=== PATIENT | female | born 1955 | race Asian ===

== ENCOUNTER → 2017-11-11 10:07 | Outpatient (CLI) | payer OTHER, SELFPAY ==
[2017-11-11 11:22] LABS: BUN Creatinine Ratio 31.7 (6-22); Blood Urea Nitrogen 19 mg/dL (7-17); Calcium 9.6 mg/dL (8.4-10.2); Carbon Dioxide 31 mmol/L (22-32); Chloride 98 mmol/L (98-107); Cholesterol 189 mg/dL (140-199); Estimated Glomerular Filt Rate > 60.0 mL/min (>60); Glucose 93 mg/dL (80-110); HDL Cholesterol 74 mg/dL (40-60); HEMOLYSIS < 15 (0-50); LDL Cholesterol Calculated 95 mg/dL (<100); Potassium 4.9 mmol/L (3.4-5.1); Sodium 140 mmol/L (137-145); Triglycerides 98 mg/dL (35-150)
[2017-11-11 11:29] LABS: Hemoglobin A1C% w Est Avg Glu 5.5 % (4.0-6.0)
== END ==
PROVIDERS: PCP Family Medicine; Visit Provider Family Medicine
DX: I10 Essential (primary) hypertension (principal); R73.03 Prediabetes
CPT/HCPCS: 36415; 80048; 80061; 83036

== ENCOUNTER → 2017-11-20 14:43 | Outpatient (CLI) | payer OTHER, SELFPAY | PROVIDERS: PCP Family Medicine; Visit Provider Family Medicine | DX: Z78.0 Asymptomatic menopausal state (principal) | CPT/HCPCS: 77080 ==

== ENCOUNTER → 2018-11-02 10:07 | Outpatient (CLI) | payer OTHER, SELFPAY ==
[2018-11-02 12:02] LABS: Creatinine Urine Random 56.8 mg/dL
[2018-11-02 12:07] LABS: BUN Creatinine Ratio 28.6 (6-22); Blood Urea Nitrogen 20 mg/dL (7-17); Calcium 9.4 mg/dL (8.4-10.2); Carbon Dioxide 31 mmol/L (22-32); Chloride 100 mmol/L (98-107); Estimated Glomerular Filt Rate > 60.0 mL/min (>60); Glucose 92 mg/dL (80-110); HEMOLYSIS < 15 (0-50); Potassium 3.9 mmol/L (3.4-5.1); Sodium 138 mmol/L (137-145)
[2018-11-02 12:10] LABS: Microalbumi Creatinin Ratio Ur 10.5 ug/mg CR (<30); Microalbumin Urine Random < 0.6 mg/dL (0-1.6)
== END ==
PROVIDERS: PCP Family Medicine; Visit Provider Family Medicine
DX: I10 Essential (primary) hypertension (principal)
CPT/HCPCS: 36415; 80048; 82043; 82570

== ENCOUNTER → 2018-11-29 08:53 | Outpatient (CLI) | payer OTHER, SELFPAY ==
--- NOTE | 2018-11-29 08:54 | DI.US.S_ITS ---
PROCEDURE: US CHEST COMPARISON: None. INDICATIONS: RIGHT INFERIOR/LATERAL SHOULDER LUMP FINDINGS: Sonographic evaluation was performed over the posterior margin of the inferior aspect of the left shoulder, chest wall, in the area of palpable and visible lump that the patient reports has been present for numerous years, without change room attendant time. It is visibly more evident, however, as a result of her losing weight. On palpation there is structure is soft and pliable, and has physical examination findings suggestive of lipoma. On sonographic evaluation this structure measures up to 6.1 x 5.2 cm parallel to the chest wall with a 2.4 cm thickness. It can be delineated within the body wall fat and is near-isoechoic to fat. Adjacent musculature is seen to be separate and different in appearance. No internal blood flow is seen that would indicate inflammatory change. 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 This is separate from the axilla, I has imaging characteristics of a lipoma, and could be further assessed for additional tissue detail if clinically desired utilizing contrast enhanced MR scanning. The structure may be a candidate for elective surgical excision and if that is the case surgical consultation rather than an ultrasound-guided biopsy is recommended. Dictated by: Mendel Mariscal M.D. on 11/29/2018 at 9:47 Approved by: Mendel Mariscal M.D. on 11/29/2018 at 9:51
== END ==
PROVIDERS: PCP Family Medicine; Visit Provider Family Medicine
DX: R22.31 Localized swelling, mass and lump, right upper limb (principal)
CPT/HCPCS: 76604

== ENCOUNTER → 2019-01-17 11:57 | Outpatient (CLI) | payer OTHER, SELFPAY ==
--- NOTE | 2019-01-17 11:58 | DI.MG.S_ITS ---
BILATERAL DIGITAL SCREENING MAMMOGRAM 3D/2D WITH CAD: 01/17/2019 CLINICAL: Routine screening. Family history of breast cancer. Comparison is made to exams dated: 09/15/2017 mammogram, 08/05/2016 mammogram, and 06/08/2015 mammogram - [facility]. The tissue of both breasts is heterogeneously dense. This may lower the sensitivity of mammography. Current study was also evaluated with a Computer Aided Detection (CAD) system. There is a new 6 mm round asymmetry with an obscured margin in the right breast anterior depth central to the nipple seen on the craniocaudal view only. No other significant masses, calcifications, or other findings are seen in either breast. IMPRESSION: INCOMPLETE: NEEDS ADDITIONAL IMAGING EVALUATION The new 6 mm round asymmetry in the right breast is indeterminate. A diagnostic mammogram and ultrasound is recommended. This exam was interpreted at Station ID: [id number]. NOTE: For mammograms, a report in lay terms will be sent to the patient. Approximately 15% of breast malignancies will not be visualized mammographically. In the management of a palpable breast mass, a negative mammogram must not discourage biopsy of a clinically suspicious lesion. Electronically Signed By: Carmen reeves/fabio:01/17/2019 19:06:18 letter sent: Additional Imaging Needed ACR BI-RADS Category 0: Incomplete 3340F
== END ==
PROVIDERS: PCP Family Medicine; Visit Provider Family Medicine
DX: Z12.39 Encounter for other screening for malignant neoplasm of breast (principal); Z80.3 Family history of malignant neoplasm of breast
CPT/HCPCS: 77063; 77067

== ENCOUNTER → 2019-02-11 10:09 | Outpatient (CLI) | payer OTHER, SELFPAY ==
--- NOTE | 2019-02-11 10:12 | DI.US.S_ITS ---
LIMITED ULTRASOUND OF RIGHT BREAST: 02/11/2019 CLINICAL: Patient returns today to evaluate a focal asymmetry in the right breast. Comparison is made to exams dated: 02/11/2019 mammogram, 01/17/2019 mammogram - [facility], 09/15/2017 mammogram, 08/05/2016 mammogram, and 06/08/2015 mammogram - [facility]. Color flow and real-time ultrasound of the right breast 6 o'clock and 12 o'clock regions were performed. Chapman scale images of the real-time examination were reviewed. No significant abnormalities were seen sonographically in the right breast. IMPRESSION: NEGATIVE There is no sonographic correlate to the patient's screening abnormality which resolved with additional mammographic views. No sonographic evidence of malignancy. Return to annual mammogram screening schedule is recommended. Findings and recommendations were conveyed to the patient at time of exam. This exam was interpreted at Station ID: [id number]. Electronically Signed By: Carmen reeves/:02/11/2019 11:40:40 letter sent: Normal Exam Ultrasound BI-RADS: 1 Negative
--- NOTE | 2019-02-11 10:12 | DI.MG.S_ITS ---
UNILATERAL RIGHT DIGITAL DIAGNOSTIC MAMMOGRAM 3D/2D WITH ADDITIONAL VIEWS: 02/11/2019 CLINICAL: Additional evaluation requested from prior study. Comparison is made to exams dated: 01/17/2019 mammogram - [facility], 09/15/2017 mammogram, and 08/05/2016 mammogram - [facility]. The tissue of right breast is heterogeneously dense. This may lower the sensitivity of mammography. The 6 mm round asymmetry with an obscured margin in the right breast anterior depth central to the nipple seen on the craniocaudal view only is no longer seen with spot compression. This is not seen in additional views. No other significant masses or calcifications are seen in the breast. IMPRESSION: INCOMPLETE: NEEDS ADDITIONAL IMAGING EVALUATION An ultrasound is recommended to confirm resolution of round asymmetry in the right breast anterior depth central to the nipple seen on the craniocaudal view only. This was performed immediately following this exam. This exam was interpreted at Station ID: [id number]. NOTE: For mammograms, a report in lay terms will be sent to the patient. Approximately 15% of breast malignancies will not be visualized mammographically. In the management of a palpable breast mass, a negative mammogram must not discourage biopsy of a clinically suspicious lesion. Electronically Signed By: Carmen reeves/:02/11/2019 11:38:41 ACR BI-RADS Category 0: Incomplete 3340F
== END ==
PROVIDERS: PCP Family Medicine; Visit Provider Family Medicine
DX: R92.8 Other abnormal and inconclusive findings on diagnostic imaging of breast (principal); N64.89 Other specified disorders of breast
CPT/HCPCS: 76642; 77065; G0279

== ENCOUNTER 2019-03-07 00:15 | Emergency (ER) | payer OTHER, SELFPAY ==
[2019-03-07 00:24] VITALS: BP 163/84; PULSE 88; RESP 14; TEMP 36.6; O2SAT 100; BMI 21.8
[2019-03-07] MEDS: ONDANSETRON 4 MG ODT SL (00:47)
--- NOTE | 2019-03-07 01:04 | ED_ITS ---
HPI - Dental/Oral General Chief complaint: Dental/Oral Stated complaint: upper left side of face pain/tooth/gum pain Time Seen by Provider: 03/07/19 00:21 Source: family Mode of arrival: Ambulatory History of Present Illness HPI Narrative: Patient is a 63-year-old female who presents with left upper dental pain. It has been ongoing for couple of days she has an appointment with a dentist tomorrow at around 9:00 a.m.. However her pain is got significantly worse over the past few hours. She has been taking Tylenol and ibuprofen as dir ected but it has not helped. She has no facial swelling she denies any fever. She does have a crown right where the pain is. MD Complaint: tooth pain Teeth map: 1. No dental abscess. No significant swelling Related Data Home Medications Medication Instructions Recorded Confirmed metoprolol tartrate 25 mg tablet 25 mg PO BID tab 11/10/18 11/10/18 Previous Rx's Medication Instructions Recorded loratadine 10 mg tablet 10 mg PO DAILY #90 tab 11/10/18 potassium chloride 10 mEq 10 meq PO DAILY #90 cap 11/10/18 capsule,extended release amoxicillin 500 mg PO BID #14 cap 03/07/19 Allergies Allergy/AdvReac Type Severity Reaction Status Date / Time Sulfa (Sulfonamide Allergy Verified 11/10/18 09:27 Antibiotics) Review of Systems Review of Systems Narrative: GENERAL: Denies chills,fever HEENT: See HPI Denies throat pain RESPIRATORY: Denies dyspnea, cough, wheezing CARDIOVASCULAR: Denies chest pain, palpitations GASTROINTESTINAL: Denies nausea, vomiting MUSCULOSKELETAL: Denies extremity pain, injury SKIN: No rash, no laceration, no pruritus NEUROLOGIC: Denies weakness, dizziness, headache, numbness 8 point review of systems is negative except for those stated above and HPI Patient History Medical/Surgical History Medical History Atrial fibrillation (Chronic ~2015) Cardiac arrhythmia (Chronic ~2013) Cervical cancer (Chronic ~1991) Chicken pox (Resolved) Colitis (Chronic ~2014) GERD (gastroesophageal reflux disease) (Resolved ~2008) Hypertension (Chronic ~2000) Mumps (Resolved) Seasonal allergies (Chronic) Shoulder pain (Chronic ~2015) Sleep apnea (Chronic ~2016) Vertigo (Chronic ~2010) Surgical History History of hysterectomy (Resolved ~04/1992) Family History (Updated 11/11/17 @ 06:56 by Fabiola Sánchez) Father Cancer Mother Cancer Hypertension Sister Cancer Sister Hypertension Social History marital status: household members: spouse pets and animals: Yes education level: college nuria/anabaptism: sikhism other: travel,ride motorcycle,hiking,snorkeling seatbelt use: always helmet use: Yes water heater temp set < 120 deg: Yes working smoke detector in home: Yes fire extinguisher in home: Yes carbon monox detector in home: Yes firearms in home: Yes do you feel safe at home: Yes Smoking Status: Never smoker alcohol intake: never during the past year weight has: decreased > 10 lbs well-balanced diet: daily or most days daily servings fruits/ve or more times/day caffeine: Yes eating out: rarely or never Type(s) of exercise: walking frequency: 3-4 times per week duration: 45-60 minutes/day Family/Social History Family History Father Cancer Mother Cancer Hypertension Sister Cancer Sister Hypertension Social History marital status: household members: spouse pets and animals: Yes education level: college nuria/anabaptism: sikhism other: travel,ride motorcycle,hiking,snorkeling seatbelt use: always helmet use: Yes water heater temp set < 120 deg: Yes working smoke detector in home: Yes fire extinguisher in home: Yes carbon monox detector in home: Yes firearms in home: Yes do you feel safe at home: Yes Smoking Status: Never smoker alcohol intake: never during the past year weight has: decreased > 10 lbs well-balanced diet: daily or most days daily servings fruits/ve or more times/day caffeine: Yes eating out: rarely or never Type(s) of exercise: walking frequency: 3-4 times per week duration: 45-60 minutes/day alcohol intake frequency: 0-2 drinks per day Substance Use Type: does not use Exam Initial Vital Signs Initial Vital Signs: Vital Signs Temperature 97.8 F 03/07/19 00:24 Pulse Rate 88 03/07/19 00:24 Respiratory Rate 14 03/07/19 00:24 Blood Pressure 163/84 H 03/07/19 00:24 Pulse Oximetry 100 03/07/19 00:24 GENERAL: Well-appearing, well-nourished and in no acute distress. The crown noted at tooth 13. No dental abscess CARDIOVASCULAR: peripheral pulses in tact, cap refill <2 sec RESPIRATORY: No respiratory distress, speaks in full sentences without difficulty EXTREMITIES: Normal range of motion, no clubbing or edema. Neurovascularly intact NEUROLOGICAL: Cranial nerves II through XII grossly intact. Normal gait and speech. SKIN: Warm, dry, no petechiae, no rashes or lesions. Procedures Nerve Block Nerve Block 1: Time out performed: Yes Local Anesthetic: bupivacaine 0.5% and with epi Amount of anesthesia used (mL): 1 Side: left Intraoral Nerve Block: superior alveolar Procedure Successful: Yes Patient Tolerated Procedure: Well Complications: none Course Orders Ordered: Discontinued Medications Hydrocodone Bitart/Acetaminophen (Vicodin Prepack) 1 bottle MISC SEEINSTR ONE Stop: 03/07/19 01:09 Last Admin: 03/07/19 01:28 Dose: 1 bottle Documented by: GALINA Amoxicillin ( Trimox 250mg Prepack) 1 bottle MISC SEEINSTR ONE Stop: 03/07/19 01:09 Last Admin: 03/07/19 01:28 Dose: 1 bottle Documented by: GALINA Ondansetron HCl (Zofran Odt) 4 mg SL NOW ONE Stop: 03/07/19 00:45 Last Admin: 03/07/19 00:47 Dose: 4 mg Documented by: KEITH Vital Signs Vital signs: Vital Signs - 8 hr 03/07/19 00:24 03/07/19 01:19 Temperature 97.8 F Pulse Rate 88 61 Respiratory Rate 14 99 H Blood Pressure 163/84 H Blood Pressure [Left Arm] 149/72 H Pulse Oximetry 100 99 Discharge Plan Departure Patient Disposition: Home Clinical Impression: Toothache Instructions: DI for Dental Pain Activity Restrictions/Additional Instructions: *You have been diagnosed with dental pain *What to do: *Continue to take medications as directed Amoxicillin 500 mg twice a day for 7 days [place] 1 tablet every 6 hours if needed for pain *Follow up with your primary care provider in 2-3 days *Return to ER if you should have increasing facial swelling pain or any new, worsening or concerning symptoms Prescriptions: New amoxicillin 500 mg capsule 500 mg PO BID Qty: 14 RF: 0 No Action loratadine [Allergy Relief (loratadine)] 10 mg tablet 10 mg PO DAILY Qty: 90 RF: 2 potassium chloride 10 mEq capsule, extended release 10 meq PO DAILY Qty: 90 RF: 2 metoprolol tartrate 25 mg tablet 25 mg PO BID RF: 0 Referrals: Sandrita Alejandra MD [Primary Care Provider] -
[2019-03-07 01:19] VITALS: BP 149/72; PULSE 61; RESP 99; O2SAT 99
[2019-03-07] MEDS: AMOXICILLIN 250 MG PREPACK 1 BOTTLE MISC (01:28)
[2019-03-07] MEDS: HYDROCODONE/ACET 5/325 PREPACK 1 BOTTLE MISC (01:28)
== END 2019-03-07 01:34 | disposition home or self-care (01) ==
PROVIDERS: Emergency Provider Emergency Medicine; PCP Family Medicine
DX: K08.89 Other specified disorders of teeth and supporting structures (principal)
CPT/HCPCS: 64450; 99282; 99283

== ENCOUNTER → 2019-11-18 09:01 | Outpatient (CLI) | payer OTHER, SELFPAY ==
[2019-11-18 09:33] LABS: Add Manual Diff / Slide Review NO; Basophils Absolute Auto 100 /uL (0-100); Basophils Percent Auto 1.9 % (0-2); Eosinophils Absolute Auto 200 /uL (0-450); Eosinophils Percent Auto 4.2 % (2-4); Hematocrit 39.2 % (36-46); Hemoglobin 13.2 g/dL (12.0-16.0); Lymphocytes Absolute Auto 1700 /uL (1100-4500); Lymphocytes Percent Auto 32.4 % (25-40); Mean Corpuscular HGB Conc 33.6 % (30-36); Mean Corpuscular Hemoglobin 31.1 PG (26-34); Mean Corpuscular Volume 92.5 fL (80-100); Monocytes Absolute Auto 400 /uL (0-900); Neutrophils Absolute Auto 2700 /uL (1500-7000); Neutrophils Percent Auto 53.5 % (50-75); Platelet Count 254 X10^3/uL (150-400); Red Blood Cell Count 4.24 X10^6/uL (4.0-5.2); Red Cell Distribution Width 13.3 % (11.6-14.8); White Blood Cell Count 5.1 X10^3/uL (4.5-11.0)
[2019-11-18 09:49] LABS: Hemoglobin A1C% w Est Avg Glu 5.7 % (4.0-6.0)
[2019-11-18 09:55] LABS: Alanine Aminotransferase 19 IU/L (<35); Albumin 4.6 g/dL (3.5-5.0); Albumin Globulin Ratio 1.4 (1.0-2.8); Alkaline Phosphatase 49 U/L (38-126); Aspartate Aminotransferase 27 IU/L (14-36); BUN Creatinine Ratio 23.1 (6-22); Bilirubin Total 0.4 mg/dL (0.2-1.3); Blood Urea Nitrogen 15 mg/dL (7-17); Calcium 10.1 mg/dL (8.4-10.2); Carbon Dioxide 31 mmol/L (22-32); Chloride 101 mmol/L (98-107); Cholesterol 208 mg/dL (140-199); Estimated Glomerular Filt Rate > 60.0 mL/min (>60); Globulin 3.2 g/dL (1.7-4.1); Glucose 100 mg/dL (80-110); HDL Cholesterol 64 mg/dL (40-60); HEMOLYSIS < 15 (0-50); LDL Cholesterol Calculated 116 mg/dL (<100); Potassium 4.1 mmol/L (3.4-5.1); Sodium 138 mmol/L (137-145); Total Protein 7.8 g/dL (6.3-8.2); Triglycerides 141 mg/dL (35-150)
[2019-11-18 10:23] LABS: Thyroid Stimulating Hormone 1.59 uIU/mL (0.47-4.68)
== END ==
PROVIDERS: PCP Family Medicine; Referring Provider Family Medicine; Visit Provider Family Medicine
DX: G47.30 Sleep apnea, unspecified (principal); I10 Essential (primary) hypertension; I48.0 Paroxysmal atrial fibrillation
CPT/HCPCS: 36415; 80053; 80061; 83036; 84443; 85025

== ENCOUNTER → 2020-02-01 09:43 | Outpatient (CLI) | payer OTHER, SELFPAY ==
--- NOTE | 2020-02-15 09:44 | P.HOLT.S_ITS ---
[employer] Report Referral & Results Date Patient Seen: 02/01/20 Requesting provider: Sandrita Alejandra Indication: Dizziness Duration of monitoring (days): 3 Diary information: there were 13 patient triggered events and 8 patient diary entries over 3 days Patient triggered events were associated with (within 45 seconds) sinus rhythm, PACs, and SVT. Patient diary events were associated with the same 3 rhythms Data: minimum heart rate was 47 beats per minute at 07:52 on 02/02/2020 Maximum sinus heart rate was 114 beats per minute at 12:34 on 02/01/2020 Maximum overall heart rate was 140 beats per minute at 11:24 on 02/01/2020 during a 7 beat run of SVT/ atrial tachycardia Less than 1% of identified beats or either ventricular supraventricular ectopic in origin There were 12 runs of SVT/ atrial tachycardia with the fastest being the 7 beat run as above the longest being 17 beats at a rate of 108 beats per minute (which suggest strongly atrial tachycardia rather than true SVT ) Impression: 3 day monitor and storage bin tender showing minor supraventricular dysrhythmias as above. No more significant rhythm disturbances identified on this study
== END ==
PROVIDERS: Family Provider Family Medicine; PCP Family Medicine; Referring Provider Family Medicine; Visit Provider Family Medicine
DX: R42 Dizziness and giddiness (principal)
CPT/HCPCS: 0296T; 0298T

== ENCOUNTER → 2020-03-05 17:05 | Outpatient (CLI) | payer OTHER, SELFPAY ==
--- NOTE | 2020-03-05 | DI.MG.S_ITS ---
BILATERAL DIGITAL SCREENING MAMMOGRAM 3D/2D WITH CAD: 03/05/2020 CLINICAL: Routine screening. Family history of breast cancer. Comparison is made to exams dated: 02/11/2019 mammogram, 01/17/2019 mammogram - [facility], 09/15/2017 mammogram, and 08/05/2016 mammogram - [facility]. The tissue of both breasts is heterogeneously dense. This may lower the sensitivity of mammography. Current study was also evaluated with a Computer Aided Detection (CAD) system. No significant masses, calcifications, or other findings are seen in either breast. There has been no significant interval change. IMPRESSION: NEGATIVE There is no mammographic evidence of malignancy. A 1 year screening mammogram is recommended. This exam was interpreted at Station ID: [id number]. NOTE: For mammograms, a report in lay terms will be sent to the patient. Approximately 15% of breast malignancies will not be visualized mammographically. In the management of a palpable breast mass, a negative mammogram must not discourage biopsy of a clinically suspicious lesion. Electronically Signed By: aJnis santos/fabio:03/06/2020 08:52:08 letter sent: Normal Exam ACR BI-RADS Category 1: Negative 3341F
== END ==
PROVIDERS: Family Provider Family Medicine; PCP Family Medicine; Referring Provider Family Medicine; Visit Provider Family Medicine
DX: Z12.31 Encounter for screening mammogram for malignant neoplasm of breast (principal); Z80.3 Family history of malignant neoplasm of breast
CPT/HCPCS: 77063; 77067

== ENCOUNTER → 2020-04-02 10:33 | Outpatient (CLI) | payer OTHER, SELFPAY ==
[2020-04-02 14:28] LABS: COVID19 -Nasal RAPID Negative (Negative)
== END ==
PROVIDERS: Family Provider Family Medicine; PCP Family Medicine; Visit Provider Specialist
DX: Z01.812 Encounter for preprocedural laboratory examination (principal); Z12.11 Encounter for screening for malignant neoplasm of colon; Z11.59 Encounter for screening for other viral diseases
CPT/HCPCS: 87635; C9803

== ENCOUNTER 2020-04-03 09:00 | Day surgery (SDC) | payer OTHER, SELFPAY ==
[2020-04-03 09:28] VITALS: BP 141/76; PULSE 69; RESP 16; TEMP 37.2; O2SAT 98; BMI 22.9
[2020-04-03] MEDS: LACTATED RINGERS 1,000 ML 200 ML IV (09:28)
--- NOTE | 2020-04-03 11:10 | PM.HP.1 ---
History of Present Illness History of Present Illness Date Patient Seen: 04/03/20 Time Patient Seen: 11:10 Chief complaint: SDC Narrative: The patient is a woman here for screening colonoscopy. She is on a high risk group. Her sister developed colon cancer in her early 50s and from it shortly thereafter. Her last colonoscopy was 5 years ago. Patient History Medical History Atrial fibrillation (Chronic ~2015) Cardiac arrhythmia (Chronic ~2013) Cervical cancer (Chronic ~1991) Chicken pox (Resolved) Colitis (Chronic ~2014) GERD (gastroesophageal reflux disease) (Resolved ~2008) Hypertension (Chronic ~2000) Mumps (Resolved) Seasonal allergies (Chronic) Shoulder pain (Chronic ~2015) Sleep apnea (Chronic ~2016) Vertigo (Chronic ~2010) Surgical History History of hysterectomy (Resolved ~04/1992) Family & Social History Family History Father Cancer Mother Cancer Hypertension Sister Cancer Sister Hypertension Social History: household members spouse other travel,ride motorcycle,hiking,snorkeling Tobacco & Substance use: Smoking Status Never smoker alcohol intake never alcohol intake frequency 0-2 drinks per day Substance Use Type does not use Meds Home Medications and Allergies Home Medications Medication Instructions Recorded Confirmed Type loratadine 10 mg tablet 10 mg PO DAILY #90 tab 11/22/19 04/03/20 Rx potassium chloride 10 mEq 10 meq PO DAILY #90 cap 11/22/19 04/03/20 Rx capsule,extended release metoprolol tartrate 25 mg PO DAILY 04/03/20 04/03/20 History Allergies Allergy/AdvReac Type Severity Reaction Status Date / Time Sulfa (Sulfonamide Allergy Intermediate Rash Verified 04/03/20 09:18 Antibiotics) Review of Systems Review of Systems Narrative: Is no longer in atrial fibrillation ROS: Yes All systems reviewed with the patient and are negative except as otherwise documented Exam Vital Signs (past 8 hours): - 04/03/20 09:28 Temperature 98.9 F Pulse Rate 69 Respiratory Rate 16 Blood Pressure 141/76 H Pulse Oximetry 98 Oxygen Delivery Method Room Air Narrative Exam Narrative: Pleasant cooperative patient no apparent distress. Lungs are clear to auscultation. No rales or rhonchi. Heart regular rate and rhythm no murmur gallop. Abdomen is soft nontender without mass. No obvious hernias. Patient is alert and oriented x3. Assessment & Plan Assessment & Plan narrative: The patient for a screening colonoscopy. I have discussed the procedure with them. Risks of bleeding, perforation which would necessitate major operation, failure to find remove all lesions, the potential tattoo were all discussed. All questions were answered. They wished to proceed.
--- NOTE | 2020-04-03 11:15 | PM.PREOP ---
Pre-operative Note COVID-19 COVID-19 status: Negative Result date/Date tested (Pos, Neg/Pending): 03/31/20 Interval Note History & Physical reviewed/Exam performed by Physician: Yes Changes to H&P: No ASA Class (for procedural sedation): II
[2020-04-03] MEDS: MIDAZOLAM 5 MG/5 ML VIAL IV (11:26)
[2020-04-03] MEDS: fentaNYL 250 MCG/5 ML INJ IV (11:31)
[2020-04-03 11:45] VITALS: BP 119/68; PULSE 73; RESP 12; TEMP 36.8; O2SAT 98
--- NOTE | 2020-04-03 11:45 | PM.OP.ENDO ---
Operative Date/Time/Diagnoses Date of procedure: 04/03/20 Time of procedure: 11:45 Pre-op diagnosis: Screening exam. Last exam 5 years ago. Sister of colon cancer in her 50s. Post-op diagnosis: same Procedure & Clinicians Study performed: Colonoscopy Same procedure as scheduled: Yes Indications: Screening Surgeon: Jose Angel Chi Procedure Notes SCOAP/Timeout: Performed Procedure in detail: The patient was placed in the left lateral decubitus position and underwent IV sedation directed by the surgeon consisting of fentanyl and Versed. Digital exam was unremarkable. The scope was inserted and advanced through the rectum into the sigmoid, descending, transverse, and ascending colon. No lesions were seen. The cecum was reached identified by the ileocecal valve and the appendiceal opening. The ileocecal valve was successfully cannulated. The terminal ileum was normal in appearance. The scope was gradually brought out. No Polyps were found. The scope ultimately was retroflexed in the rectum. The appearance was notable for internal hemorrhoids without ulceration.. The scope was removed and the patient tolerated the procedure well. Scope withdrawal time: 9 minutes Sedation minutes: 25 Findings: other findings (Normal exam) Specimen(s): none sent Complications: none Post-procedure Recommendations: Colonscopy in 5 years Follow up: as needed Disposition: PACU
[2020-04-03 11:51] VITALS: BP 111/63; PULSE 74; RESP 16; O2SAT 97
[2020-04-03 11:56] VITALS: BP 112/64; PULSE 75; RESP 16; O2SAT 96
[2020-04-03 12:02] VITALS: BP 124/68; PULSE 67; RESP 16; TEMP 36.8; O2SAT 97
[2020-04-03 12:19] VITALS: BP 126/71; PULSE 60; RESP 18; O2SAT 97
--- NOTE | 2020-04-03 12:22 | SUR.PHASEII ---
pt to go home. Denies any complaints with pt and is helping her get dressed. Pt ready to be discharged. She had a cup of water .
== END 2020-04-03 12:25 | disposition home or self-care (01) ==
PROVIDERS: Family Provider Family Medicine; PCP Family Medicine; Referring Provider Family Medicine; Visit Provider Specialist
PROC: 0DJD8ZZ Inspection of Lower Intestinal Tract, Via Natural or Artificial Opening Endoscopic (ICD-10-PCS; CPT 45378; principal; 2020-04-03 10:00)
DX: Z12.11 Encounter for screening for malignant neoplasm of colon (principal); Z80.0 Family history of malignant neoplasm of digestive organs; I10 Essential (primary) hypertension; I48.91 Unspecified atrial fibrillation; G47.30 Sleep apnea, unspecified; K64.8 Other hemorrhoids
CPT/HCPCS: 45378; 99152; 99153; J2250; J3010

== ENCOUNTER → 2021-01-15 10:54 | Outpatient (CLI) | payer MEDICARE, OTHER, SELFPAY ==
[2021-01-15 11:42] LABS: Add Manual Diff / Slide Review NO; Basophils Absolute Auto 0 /uL (0-100); Basophils Percent Auto 0.5 % (0-2); Eosinophils Absolute Auto 100 /uL (0-450); Eosinophils Percent Auto 1.6 % (2-4); Hemoglobin 13.5 g/dL (12.0-16.0); Lymphocytes Absolute Auto 1600 /uL (1100-4500); Lymphocytes Percent Auto 34.1 % (25-40); Mean Corpuscular Hemoglobin 30.5 PG (26-34); Mean Corpuscular Volume 92.6 fL (80-100); Monocytes Absolute Auto 400 /uL (0-900); Monocytes Percent Auto 7.7 % (3-14); Neutrophils Absolute Auto 2700 /uL (1500-7000); Neutrophils Percent Auto 56.1 % (50-75); Platelet Count 246 X10^3/uL (150-400); Red Blood Cell Count 4.43 X10^6/uL (4.0-5.2); Red Cell Distribution Width 13.2 % (11.6-14.8); White Blood Cell Count 4.7 X10^3/uL (4.5-11.0)
[2021-01-15 11:56] LABS: Alanine Aminotransferase 22 IU/L (<35); Albumin 4.6 g/dL (3.5-5.0); Albumin Globulin Ratio 1.3 (1.0-2.8); Alkaline Phosphatase 55 U/L (38-126); Aspartate Aminotransferase 27 IU/L (14-36); Bilirubin Total 0.5 mg/dL (0.2-1.3); Blood Urea Nitrogen 13 mg/dL (7-17); Calcium 9.6 mg/dL (8.4-10.2); Carbon Dioxide 33 mmol/L (22-32); Chloride 102 mmol/L (98-107); Cholesterol 221 mg/dL (140-199); Estimated Glomerular Filt Rate > 60.0 mL/min (>60); Globulin 3.6 g/dL (1.7-4.1); Glucose 109 mg/dL (80-110); HDL Cholesterol 62 mg/dL (40-60); HEMOLYSIS < 15 (0-50); LDL Cholesterol Calculated 120 mg/dL (<100); Sodium 139 mmol/L (137-145); Total Protein 8.2 g/dL (6.3-8.2); Triglycerides 196 mg/dL (35-150)
[2021-01-15 12:54] LABS: TSH w/ Reflex to FT4 1.18 uIU/mL (0.47-4.68)
== END ==
PROVIDERS: Family Provider Family Medicine; PCP Family Medicine; Referring Provider Family Medicine; Visit Provider Family Medicine
DX: I10 Essential (primary) hypertension (principal); I48.0 Paroxysmal atrial fibrillation; K21.9 Gastro-esophageal reflux disease without esophagitis; G47.30 Sleep apnea, unspecified
CPT/HCPCS: 36415; 80053; 80061; 84443; 85025

== ENCOUNTER → 2021-03-15 10:17 | Outpatient (CLI) | payer MEDICARE, OTHER, SELFPAY ==
[2021-03-15 13:12] LABS: BUN Creatinine Ratio 22.2 (6-22); Blood Urea Nitrogen 16 mg/dL (7-17); Calcium 9.4 mg/dL (8.4-10.2); Carbon Dioxide 32 mmol/L (22-32); Chloride 99 mmol/L (98-107); Estimated Glomerular Filt Rate > 60.0 mL/min (>60); Glucose 98 mg/dL (80-110); HEMOLYSIS < 15 (0-50); Potassium 4.2 mmol/L (3.4-5.1); Sodium 139 mmol/L (137-145)
== END ==
PROVIDERS: Family Provider Family Medicine; PCP Family Medicine; Referring Provider Family Medicine; Visit Provider Family Medicine
DX: E87.6 Hypokalemia (principal)
CPT/HCPCS: 36415; 80048

== ENCOUNTER → 2021-03-15 10:31 | Outpatient (CLI) | payer MEDICARE, OTHER, SELFPAY ==
--- NOTE | 2021-03-15 | DI.RAD.S_ITS ---
PROCEDURE: XR CHEST 2V INDICATIONS: PALPITATIONS/AFIB/SOB TECHNIQUE: 2 views of the chest were acquired. COMPARISON: [facility], , CHEST, 11/29/2018, 9:11. FINDINGS: Surgical changes and devices: None. Lungs and pleura: Lungs are clear. No pleural effusions or pneumothorax. Mediastinum: Mediastinal contours are normal. Heart size is normal. Bones and chest wall: No suspicious bony abnormalities. Soft tissues appear unremarkable. IMPRESSION: No acute cardiopulmonary disease. Dictated by: Raymond Schwartz [facility] Interpreted: Fred Gregory MD on 03/15/2021 at 10:55 Transcribed by: ILEANA on 03/15/2021 at 10:56 Approved by: Fred Gregory M.D. on 03/15/2021 at 14:45
== END ==
PROVIDERS: Family Provider Family Medicine; PCP Family Medicine; Referring Provider Internal Medicine Cardiovascular Disease; Visit Provider Internal Medicine Cardiovascular Disease
DX: R06.02 Shortness of breath (principal); R00.2 Palpitations; I48.0 Paroxysmal atrial fibrillation; E87.6 Hypokalemia
CPT/HCPCS: 36415; 71046; 80048

== ENCOUNTER → 2021-04-02 12:43 | Outpatient (CLI) | payer MEDICARE, OTHER, SELFPAY ==
[2021-04-02 13:00] LABS: Add Manual Diff / Slide Review NO; Basophils Absolute Auto 0 /uL (0-100); Basophils Percent Auto 0.4 % (0-2); Eosinophils Absolute Auto 100 /uL (0-450); Eosinophils Percent Auto 1.2 % (2-4); Hematocrit 37.8 % (36-46); Hemoglobin 12.8 g/dL (12.0-16.0); Lymphocytes Absolute Auto 1700 /uL (1100-4500); Lymphocytes Percent Auto 33.1 % (25-40); Mean Corpuscular HGB Conc 33.9 % (30-36); Mean Corpuscular Volume 91.4 fL (80-100); Monocytes Absolute Auto 500 /uL (0-900); Monocytes Percent Auto 9.6 % (3-14); Neutrophils Absolute Auto 2800 /uL (1500-7000); Neutrophils Percent Auto 55.7 % (50-75); Platelet Count 238 X10^3/uL (150-400); Red Blood Cell Count 4.14 X10^6/uL (4.0-5.2); Red Cell Distribution Width 12.8 % (11.6-14.8)
[2021-04-02 18:21] LABS: HIV 1 & 2 Ab/Ag 4th Gen Combo NEGATIVE (NEGATIVE)
== END ==
PROVIDERS: Family Provider Family Medicine; PCP Family Medicine; Referring Provider Family Medicine; Visit Provider Family Medicine
DX: A31.0 Pulmonary mycobacterial infection (principal)
CPT/HCPCS: 36415; 85025; 87389

== ENCOUNTER → 2021-04-16 08:16 | Outpatient (CLI) | payer MEDICARE, OTHER, SELFPAY ==
--- NOTE | 2021-04-16 | DI.MG.S_ITS ---
BILATERAL DIGITAL SCREENING MAMMOGRAM 3D/2D WITH CAD: 04/16/2021 CLINICAL: Routine screening. Family history of breast cancer. Comparison is made to exams dated: 03/05/2020 mammogram, 02/11/2019 mammogram, 01/17/2019 mammogram - [facility], and 09/15/2017 mammogram - [facility]. There are scattered fibroglandular elements in both breasts. Current study was also evaluated with a Computer Aided Detection (CAD) system. No significant masses, calcifications, or other findings are seen in either breast. There has been no significant interval change. IMPRESSION: NEGATIVE There is no mammographic evidence of malignancy. A 1 year screening mammogram is recommended. This exam was interpreted at Station ID: [id number]. NOTE: For mammograms, a report in lay terms will be sent to the patient. Approximately 15% of breast malignancies will not be visualized mammographically. In the management of a palpable breast mass, a negative mammogram must not discourage biopsy of a clinically suspicious lesion. Electronically Signed By: Carmen reeves/fabio:04/16/2021 11:26:05 letter sent: Normal Exam ACR BI-RADS Category 1: Negative 3341F
== END ==
PROVIDERS: Family Provider Family Medicine; PCP Family Medicine; Referring Provider Family Medicine; Visit Provider Family Medicine
DX: Z12.31 Encounter for screening mammogram for malignant neoplasm of breast (principal); Z80.3 Family history of malignant neoplasm of breast
CPT/HCPCS: 77063; 77067

== ENCOUNTER 2021-04-29 02:14 | Emergency (ER) | payer MEDICARE, OTHER, SELFPAY ==
[2021-04-29] VITALS (14 sets, daily range): BP systolic 108–143; BP diastolic 52–75; PULSE 57–115; RESP 12–32; TEMP 37; O2SAT 94–100; BMI 23.3
--- NOTE | 2021-04-29 02:17 | DI.RAD.S_ITS ---
PROCEDURE: XR CHEST 1V INDICATIONS: chest pain TECHNIQUE: One view of the chest was acquired. COMPARISON: None. FINDINGS: Surgical changes and devices: None. Lungs and pleura: Lungs are clear. No pleural effusions or pneumothorax. Mediastinum: Mediastinal contours appear normal. Heart size is normal. Bones and chest wall: No suspicious bony lesions. Overlying soft tissues appear unremarkable. IMPRESSION: No acute cardiopulmonary disease process. Dictated by: Sharonda Wilburn MD, PhD on 04/29/2021 at 8:23 Approved by: Sharonda Wilburn MD, PhD on 04/29/2021 at 8:24
[2021-04-29 02:48] LABS: Add Manual Diff / Slide Review NO; Basophils Absolute Auto 0 /uL (0-100); Basophils Percent Auto 0.3 % (0-2); Eosinophils Absolute Auto 100 /uL (0-450); Hematocrit 38.3 % (36-46); Lymphocytes Absolute Auto 2600 /uL (1100-4500); Lymphocytes Percent Auto 41.3 % (25-40); Mean Corpuscular Hemoglobin 30.9 PG (26-34); Mean Corpuscular Volume 90.8 fL (80-100); Monocytes Absolute Auto 400 /uL (0-900); Monocytes Percent Auto 6.8 % (3-14); Neutrophils Absolute Auto 3200 /uL (1500-7000); Neutrophils Percent Auto 50.6 % (50-75); Platelet Count 260 X10^3/uL (150-400); Red Blood Cell Count 4.22 X10^6/uL (4.0-5.2); Red Cell Distribution Width 12.8 % (11.6-14.8); White Blood Cell Count 6.2 X10^3/uL (4.5-11.0)
[2021-04-29] MEDS: propofoL 200 MG/20 ML VIAL 65 MG IV (02:51)
--- NOTE | 2021-04-29 02:55 | ED.ARRPALP ---
HPI - Arrhythmia/Palpitations General Chief Complaint: Arrhythmia/Palpitations Stated Complaint: Afib Time Seen by Provider: 04/29/21 02:15 Source: patient and EMS Mode of arrival: EMS Limitations: no limitations History of Present Illness HPI narrative: 65F nonsmoker with history of atrial fibrillation on Xarelto presents by EMS for evaluation of chest pain, shortness of breath and a sudden onset of rapid AFib that woke her from sleep just prior to arrival. She had gone to sleep in her normal state of health and had no complaints whatsoever. She has been on Xarelto for well over 1 month, has not missed any doses. She was last cardioverted few months ago in [place] and had a successful procedure with the use of propofol. She has had no change in medications or diet. On arrival EMS found her to be in a rapid atrial fibrillation in the 150s and 160s with possibly some lateral ST depressions. She was given Cardizem 15 mg IV push in route and had slowed to the 90s to 130s by her arrival here. She states her resting heart rate is about 60 Related Data Home Medications Medication Instructions Recorded Confirmed rivaroxaban 20 mg tablet (Xarelto) 20 mg PO QPM 03/04/21 spironolactone 25 mg tablet 12.5 mg PO DAILY tab 04/02/21 04/02/21 (Aldactone) Previous Rx's Medication Instructions Recorded loratadine 10 mg tablet (Allergy 10 mg PO DAILY #90 tab 11/22/19 Relief (loratadine)) metoprolol tartrate 25 mg tablet 25 mg PO DAILY #90 tab 10/23/20 potassium chloride 10 mEq 10 meq PO DAILY #90 cap 10/23/20 capsule,extended release atorvastatin 20 mg tablet 20 mg PO BEDTIME #90 tab 04/02/21 losartan 25 mg tablet (Cozaar) 25 mg PO DAILY #0.5 tab 04/02/21 metoprolol succinate 25 mg 25 mg PO DAILY #0.5 tab 04/02/21 tablet,extended release 24 hr Allergies Allergy/AdvReac Type Severity Reaction Status Date / Time Sulfa (Sulfonamide Allergy Intermediate Rash Verified 01/23/21 10:17 Antibiotics) pneumococcal vaccine Allergy Mild Rash Verified 01/29/21 08:47 Review of Systems Review of Systems Narrative: GENERAL: Denies chills, fatigue, malaise, fever, sweats. HEENT: Denies sinus pain, ear pain, sore throat, difficulty swallowing, dizziness. RESPIRATORY: See HPI CARDIOVASCULAR: See HPI GASTROINTESTINAL: Denies nausea, vomiting, abdominal pain, diarrhea, constipation, melena. : Denies dysuria, frequency, incontinence, hematuria, urinary retention. MUSCULOSKELETAL: denies weakness, joint pain, or bony pain SKIN: Denies rash, skin lesions, or other NEUROLOGIC: Denies weakness, headache, numbness, change in speech, confusion, seizures, incoordination. PSYCHIATRIC: No concerning psychosocial issues. 12 point review of systems is negative except for those stated above Patient History Medical History (Updated 04/29/21 @ 03:02 by Nikhil Gibbs DO) Atrial fibrillation (~2015) Cardiac arrhythmia (~2013) Cervical cancer (~1991) Chicken pox Colitis (~2014) GERD (gastroesophageal reflux disease) (~2008) Hypertension (~2000) Mumps Seasonal allergies Shoulder pain (~2015) Sleep apnea (~2016) Vertigo (~2010) Surgical History History of hysterectomy (~04/1992) Family History Father Cancer Mother Cancer Hypertension Sister Cancer Sister Hypertension Social History marital status: household members: spouse pets and animals: Yes education level: college nuria/restorationism: druze other: travel,ride motorcycle,hiking,snorkeling seatbelt use: always helmet use: Yes water heater temp set < 120 deg: Yes working smoke detector in home: Yes fire extinguisher in home: Yes carbon monox detector in home: Yes firearms in home: Yes do you feel safe at home: Yes Smoking Status: Never smoker second hand exposure: No alcohol intake: never substance use type: does not use during the past year weight has: decreased > 10 lbs well-balanced diet: daily or most days daily servings fruits/ve or more times/day caffeine: Yes eating out: rarely or never Type(s) of exercise: walking frequency: 3-4 times per week duration: 45-60 minutes/day Smoking Status: Never smoker alcohol intake frequency: 0-2 drinks per day Substance Use Type: does not use Exam Narrative Exam Narrative: GENERAL: 65 [] year old patient appears stated age. Well-developed patient, in mild distress. HEAD: Atraumatic. Normocephalic. EYES: Pupils equal round and reactive. Extraocular motions intact. No scleral icterus. No injection or drainage. ENT: Nose without bleeding, purulent drainage. Throat without erythema, tonsillar hypertrophy or exudate. Airway patent. NECK: Trachea midline. Non tender CARDIOVASCULAR: Tachycardic and irregular rhythm without murmurs, gallops, or rubs. RESPIRATORY: Clear to auscultation. Breath sounds equal bilaterally. No wheezes, rales, or rhonchi. GASTROINTESTINAL: Abdomen soft, non-tender, nondistended. EXTREMITIES: No edema or joint tenderness. BACK: Nontender without deformity or crepitance. No flank tenderness. NEURO: AOx3. SKIN: No rash or erythema of visible areas Initial Vital Signs Initial Vital Signs: Vital Signs Pulse Rate 99 H 04/29/21 02:18 Respiratory Rate 32 H 04/29/21 02:18 Pulse Oximetry 100 04/29/21 02:18 Procedures Cardioversion Consent Signed: Yes Indication: Rapid atrial fibrillation with symptoms, on anticoagulation Stability: Stable Number of attempts (shocks): 1 Joules used: 120 Cardiac rhythm post-cardioversion: Normal sinus rhythm in the 60s Procedural Sedation Consent signed: Yes Time out performed: Yes Indication: cardioversion ASA Class: II Mallampati Airway Classification: Class II Preparation: laboratory monitor applied, pulse oximeter, capnometry used, supplemental O2 applied, suction/airway equipment at bedside and IV secured IV Propofol dose (mg): 60 Intraservice time/total sedation time (min): 12 ED Sedation Level: Moderate (Concious) Patient Tolerated Procedure: Well Complications: none Course Orders Ordered: ED Orders 04/29/21 02:17 XR chest 1V Stat EKG-12 Lead Stat 04/29/21 02:30 Complete Blood Count AUTO DIFF Stat Comprehensive Metabolic Panel Stat Lipase Stat NT-proBNP (BNP-Adult 18+) Stat Troponin & CK Cardiac Panel Stat 04/29/21 02:35 COVID19 -Nasal swab/Pre-Proc Stat 04/29/21 03:15 EKG-12 Lead Stat Discontinued Medications Sodium Chloride (Normal Saline 0.9%) 1,000 mls @ 150 mls/hr IV CONT SATISH Last Admin: 04/29/21 02:56 Dose: 150 mls/hr Documented by: JESSENIA Propofol (Propofol 200 Mg/20 Ml Vial) 65 mg 1 mg/kg (65 mg) IV NOW ONE Stop: 04/29/21 02:38 Last Admin: 04/29/21 02:51 Dose: 60 mg Documented by: JESSENIA Vital Signs Vital signs: Vital Signs - 8 hr 04/29/21 02:18 04/29/21 02:21 04/29/21 02:30 Temperature 98.6 F Pulse Rate 99 H 115 H 83 Respiratory Rate 32 H 18 21 Blood Pressure 134/62 Pulse Oximetry 100 100 98 04/29/21 02:45 04/29/21 02:50 04/29/21 02:56 Temperature Pulse Rate 91 H 94 H 59 L Respiratory Rate 25 H 12 15 Blood Pressure 131/74 118/69 123/60 Pulse Oximetry 97 100 98 04/29/21 02:59 04/29/21 03:00 04/29/21 03:06 Temperature Pulse Rate 59 L 57 L 58 L Respiratory Rate 12 14 14 Blood Pressure 109/52 L 108/65 Pulse Oximetry 99 98 96 04/29/21 03:10 04/29/21 03:15 04/29/21 03:20 Temperature Pulse Rate 59 L 58 L 58 L Respiratory Rate 14 23 20 Blood Pressure 118/70 119/68 113/65 Pulse Oximetry 97 97 96 04/29/21 03:25 04/29/21 03:30 Temperature Pulse Rate 67 61 Respiratory Rate 22 17 Blood Pressure 143/75 H 124/64 Pulse Oximetry 94 97 MDM - Arrhythmia/Palpitations Lab Data Result diagrams: 04/29/21 02:30 04/29/21 02:30 Labs: Lab Results 04/29/21 04/29/21 04/29/21 Range/Units 02:30 02:30 02:35 WBC 6.2 (4.5-11.0) X10^3/uL RBC 4.22 (4.0-5.2) X10^6/uL Hgb 13.0 (12.0-16.0) g/dL Hct 38.3 (36-46) % MCV 90.8 (80-100) fL MCH 30.9 (26-34) PG MCHC 34.0 (30-36) % RDW 12.8 (11.6-14.8) % Plt Count 260 (150-400) X10^3/uL Neut % (Auto) 50.6 (50-75) % Lymph % (Auto) 41.3 H (25-40) % [place] % (Auto) 6.8 (3-14) % Eos % (Auto) 1.0 L (2-4) % Baso % (Auto) 0.3 (0-2) % Neut # (Auto) 3200 (5811-4765) /uL Lymph # (Auto) 2600 (0185-0525) /uL [place] # (Auto) 400 (0-900) /uL Eos # (Auto) 100 (0-450) /uL Baso # (Auto) 0 (0-100) /uL Sodium 140 (137-145) mmol/L Potassium 3.5 (3.4-5.1) mmol/L Chloride 103 (98-107) mmol/L Carbon Dioxide 27 (22-32) mmol/L BUN 18 H (7-17) mg/dL Creatinine 0.57 (0.52-1.04) mg/dL Estimated GFR > 60.0 (>60) mL/min BUN/Creatinine Ratio 31.6 H (6-22) Glucose 116 H (80-110) mg/dL Calcium 9.8 (8.4-10.2) mg/dL Total Bilirubin 0.4 (0.2-1.3) mg/dL AST 32 (14-36) IU/L ALT 31 (<35) IU/L Alkaline Phosphatase 80 (38-126) U/L Total Creatine Kinase 72 (30-135) U/L CK-MB (CK-2) TNP CK-MB (CK-2) Rel Index TNP Troponin I < 0.012 (0.01-0.034) ng/mL NT-Pro-B Natriuret Pep 92 (<125) pg/mL Total Protein 8.1 (6.3-8.2) g/dL Albumin 4.8 (3.5-5.0) g/dL Globulin 3.3 (1.7-4.1) g/dL Albumin/Globulin Ratio 1.5 (1.0-2.8) Lipase 157 (23-300) U/L SARS-CoV-2 (PCR) Negative (Negative) Point of Care Testing Test Results Not applicable ECG Data Interpretation: EKG 1: Atrial fibrillation in the 90s to 110s. No current ST segmental depressions or elevations. No other ectopy Discharge Plan Departure Patient Disposition: Home Clinical Impression: Atrial fibrillation Instructions: DI for Atrial Fibrillation Activity Restrictions/Additional Instructions: *You have been diagnosed with [rapid atrial fibrillation with procedural sedation and successful cardioversion *What to do: *Please continue to take your regular medications as directed. [ ] New medication prescriptions sent to your pharmacy: [ ] [ ] New medication written as a paper prescription [ x] No new medications given *Please follow up with your primary care provider in 2-3 days, call for an appointment. Let them know you were seen in the Emergency Department and that we ask that you be seen in follow up. We will electronically transmit a record of today's note if your PCP is in our system *If you do not have a primary care provider please contact the [facility] Resource line at [phone]. They will ask some questions about your medical history and help get you set up with a doctor in the community. *Return to Emergency Department if you should have any new, worsening or concerning symptoms, such as [fever greater than 101 F, shaking chills, worsening pain, persistent vomiting or other bothersome symptoms] Prescriptions: No Action loratadine [Allergy Relief (loratadine)] 10 mg tablet 10 mg PO DAILY Qty: 90 2RF atorvastatin 20 mg tablet 20 mg PO BEDTIME Qty: 90 2RF spironolactone [Aldactone] 25 mg tablet 12.5 mg PO DAILY 0RF losartan [Cozaar] 25 mg tablet 25 mg PO DAILY Qty: 0.5 0RF metoprolol succinate 25 mg tablet extended release 24 hr 25 mg PO DAILY Qty: 0.5 0RF metoprolol tartrate 25 mg tablet 25 mg PO DAILY Qty: 90 3RF potassium chloride 10 mEq capsule, extended release 10 meq PO DAILY Qty: 90 3RF Xarelto 20 mg tablet 20 mg PO QPM 0RF Rx Instructions: must administer with evening meal Referrals: Sandrita Alejandra MD [Primary Care Provider] -
[2021-04-29 02:56] LABS: COVID19 -Nasal RAPID Negative (Negative)
[2021-04-29] MEDS: SODIUM CHLORIDE 0.9% 1,000 ML 150 ML IV (02:56)
[2021-04-29 02:57] LABS: Alanine Aminotransferase 31 IU/L (<35); Albumin 4.8 g/dL (3.5-5.0); Albumin Globulin Ratio 1.5 (1.0-2.8); Alkaline Phosphatase 80 U/L (38-126); Aspartate Aminotransferase 32 IU/L (14-36); BUN Creatinine Ratio 31.6 (6-22); Bilirubin Total 0.4 mg/dL (0.2-1.3); Blood Urea Nitrogen 18 mg/dL (7-17); Calcium 9.8 mg/dL (8.4-10.2); Carbon Dioxide 27 mmol/L (22-32); Chloride 103 mmol/L (98-107); Creatine Kinase 72 U/L (30-135); Estimated Glomerular Filt Rate > 60.0 mL/min (>60); Globulin 3.3 g/dL (1.7-4.1); Glucose 116 mg/dL (80-110); HEMOLYSIS < 15 (0-50); Lipase 157 U/L (23-300); Potassium 3.5 mmol/L (3.4-5.1); Sodium 140 mmol/L (137-145); Total Protein 8.1 g/dL (6.3-8.2)
[2021-04-29 03:09] LABS: NT-proBNP (BNP-Adult 18+) 92 pg/mL (<125); Troponin I < 0.012 ng/mL (0.01-0.034)
== END 2021-04-29 03:37 | disposition home or self-care (01) ==
PROVIDERS: Emergency Provider Emergency Medicine; Family Provider Family Medicine; PCP Family Medicine
DX: I48.91 Unspecified atrial fibrillation (principal); Z20.822 Contact with and (suspected) exposure to COVID-19
CPT/HCPCS: 36415; 71045; 80053; 82550; 83690; 83880; 84484; 85025; 87635; 92960; 93005; 93010; 96374; 99152; 99285; C9803; J2704

== ENCOUNTER → 2021-06-21 11:09 | Outpatient (CLI) | payer MEDICARE, OTHER, SELFPAY ==
--- NOTE | 2021-06-21 | DI.RAD.S_ITS ---
PROCEDURE: XR CHEST 2V INDICATIONS: SOB TECHNIQUE: 2 views of the chest were acquired. COMPARISON: [facility], CR, XR CHEST 1V, 04/29/2021, 2:32. FINDINGS: Surgical changes and devices: None. Lungs and pleura: Mild patchy bilateral perihilar and basilar reticulonodular density.. No pleural effusions or pneumothorax. Mediastinum: Mediastinal contours are normal. Heart size is normal. Bones and chest wall: No suspicious bony abnormalities. Soft tissues appear unremarkable. IMPRESSION: Mild atypical pneumonia. Dictated by: Preethi Matthews M.D. on 06/21/2021 at 14:13 Approved by: Preethi Matthews M.D. on 06/21/2021 at 14:13
[2021-06-21 12:23] LABS: Add Manual Diff / Slide Review NO; Basophils Absolute Auto 0 /uL (0-100); Basophils Percent Auto 0.4 % (0-2); Eosinophils Absolute Auto 100 /uL (0-450); Eosinophils Percent Auto 1.9 % (2-4); Hematocrit 35.8 % (36-46); Hemoglobin 12.3 g/dL (12.0-16.0); Lymphocytes Absolute Auto 1700 /uL (1100-4500); Lymphocytes Percent Auto 34.8 % (25-40); Mean Corpuscular HGB Conc 34.5 % (30-36); Mean Corpuscular Hemoglobin 31.8 PG (26-34); Mean Corpuscular Volume 92.1 fL (80-100); Monocytes Absolute Auto 400 /uL (0-900); Monocytes Percent Auto 7.9 % (3-14); Neutrophils Absolute Auto 2700 /uL (1500-7000); Platelet Count 256 X10^3/uL (150-400); Red Blood Cell Count 3.89 X10^6/uL (4.0-5.2); Red Cell Distribution Width 12.9 % (11.6-14.8); White Blood Cell Count 4.9 X10^3/uL (4.5-11.0)
[2021-06-21 13:39] LABS: Alanine Aminotransferase 33 IU/L (<35); Albumin 4.6 g/dL (3.5-5.0); Albumin Globulin Ratio 1.5 (1.0-2.8); Alkaline Phosphatase 77 U/L (38-126); Aspartate Aminotransferase 31 IU/L (14-36); BUN Creatinine Ratio 23.8 (6-22); Bilirubin Total 0.4 mg/dL (0.2-1.3); Blood Urea Nitrogen 15 mg/dL (7-17); Calcium 9.5 mg/dL (8.4-10.2); Carbon Dioxide 29 mmol/L (22-32); Chloride 101 mmol/L (98-107); Estimated Glomerular Filt Rate > 60.0 mL/min (>60); Globulin 3.1 g/dL (1.7-4.1); Glucose 110 mg/dL (80-110); HEMOLYSIS < 15 (0-50); Magnesium 2.1 mg/dL (1.6-2.3); Potassium 4.2 mmol/L (3.4-5.1); Sodium 137 mmol/L (137-145); Total Protein 7.7 g/dL (6.3-8.2)
[2021-06-21 13:46] LABS: NT-proBNP (BNP-Adult 18+) 36 pg/mL (<125)
[2021-06-25 12:02] LABS: Immunoglobulin A, Serum 254 mg/dL (87-352); Immunoglobulin G,Serum 1496 mg/dL (586-1602); Immunoglobulin M, Serum 153 mg/dL (26-217)
== END ==
PROVIDERS: Family Provider Family Medicine; PCP Family Medicine; Referring Provider Internal Medicine Cardiovascular Disease; Visit Provider Internal Medicine Cardiovascular Disease
DX: J18.9 Pneumonia, unspecified organism (principal); I48.0 Paroxysmal atrial fibrillation; R06.02 Shortness of breath; R00.2 Palpitations; R93.1 Abnormal findings on diagnostic imaging of heart and coronary circulation; I49.3 Ventricular premature depolarization
CPT/HCPCS: 36415; 71046; 80053; 82784; 83735; 83880; 84155; 85025; 86334

== ENCOUNTER → 2021-06-24 13:37 | Outpatient (CLI) | payer MEDICARE, OTHER, SELFPAY ==
--- NOTE | 2021-06-24 | DI.CT.S_ITS ---
PROCEDURE: CT ANGIO CHEST INDICATIONS: Paroxysmal atrial fibrillation TECHNIQUE: After the administration of intravenous contrast, 3 mm thick sections acquired from the pulmonary apices to the posterior costophrenic angles. 3-dimensional maximum intensity projection (MIP) coronal reformats were then acquired parallel to the pulmonary veins. For radiation dose reduction, the following was used: automated exposure control, adjustment of mA and/or kV according to patient size. COMPARISON: [facility], CT, CT CHEST WITHOUT CONTRAST, 06/03/2021, 16:35. FINDINGS: Image quality: Excellent. Pulmonary veins: 3 right and 2 left pulmonary veins are identified. * Conjoint right middle/right upper lobe pulmonary vein: 1.8 cm diameter, 0.8 cm from ostium to 1st order branch. * Superior right lower lobe pulmonary vein: 0.7 cm diameter, 1.4 cm from ostium to 1st order branch. * Inferior right lower lobe pulmonary vein: 1.5 cm diameter, 1.8 cm from ostium to 1st order branch. * Left superior pulmonary vein: 1.6 cm diameter, 0.6 cm from ostium to 1st order branch. * Left inferior pulmonary vein: 1.5 cm diameter; 1.8 cm from ostium to 1st order branch. Lungs and pleura: Scarring within the medial lingula as well as the right middle lobe medial segment. No significant change in small scattered bilateral pulmonary nodular densities, largest of which is in the right upper lobe posteriorly measuring 7 mm diameter. No pleural effusions or pneumothorax. Central and peripheral airways are patent. Mediastinum: Heart size is normal, without pericardial effusion. Mild calcification of the coronary vasculature. No mediastinal or hilar adenopathy. Thoracic aorta and pulmonary arteries are normal in caliber and enhancement. Esophagus is normal in caliber, without hiatal hernia. Bones and chest wall: No suspicious bony lesions. Ribs and thoracic spine appear intact throughout. No axillary or supraclavicular adenopathy. Thyroid gland is grossly unremarkable . Abdomen: Visualized upper abdominal solid organs appear normal in the early arterial phase of enhancement. IMPRESSION: 1. Atypical pulmonary venous anatomy as described above. 2. No change in small bilateral pulmonary nodules. 3. No change in lingular and right middle lobe scarring. 4. Coronary artery disease. Dictated by: Preethi Matthews M.D. on 06/24/2021 at 15:14 Approved by: Preethi Matthews M.D. on 06/24/2021 at 17:00
== END ==
PROVIDERS: Family Provider Family Medicine; PCP Family Medicine; Referring Provider Internal Medicine Cardiovascular Disease; Visit Provider Internal Medicine Cardiovascular Disease
DX: I48.0 Paroxysmal atrial fibrillation (principal); R91.8 Other nonspecific abnormal finding of lung field; I25.10 Atherosclerotic heart disease of native coronary artery without angina pectoris
CPT/HCPCS: 71275; Q9967

== ENCOUNTER 2021-09-28 03:56 | Emergency (ER) | payer MEDICARE, OTHER, SELFPAY ==
[2021-09-28 04:00] VITALS: BP 152/72; PULSE 64; RESP 18; TEMP 36.6; O2SAT 99
--- NOTE | 2021-09-28 04:06 | DI.RAD.S_ITS ---
PROCEDURE: XR CHEST 1V INDICATIONS: Hemoptysis with recent bronchoscopy TECHNIQUE: One view of the chest was acquired. COMPARISON: [facility], CR, XR CHEST 2V, 06/21/2021, 11:23. [facility], CR, XR CHEST 1V, 04/29/2021, 2:32. FINDINGS: Surgical changes and devices: None. Lungs and pleura: Right basal opacities, mild. Mediastinum: Aortic calcifications. Aortic contours are otherwise unremarkable. Normal mediastinal width. Bones and chest wall: No suspicious bony lesions. Overlying soft tissues appear unremarkable. IMPRESSION: Mild right basal opacities could represent airspace consolidation and/or atelectasis. Consider follow-up chest radiograph. Agree with preliminary report. Dictated by: Jeffrey Davidson M.D. on 09/28/2021 at 7:41 Approved by: Jeffrey Davidson M.D. on 09/28/2021 at 7:43
--- NOTE | 2021-09-28 04:36 | ED_ITS ---
HPI - General Adult General Chief complaint: Upper Respiratory Symptoms Stated complaint: coughing up blood Time Seen by Provider: 09/28/21 04:06 Source: patient Mode of arrival: Ambulatory History of Present Illness HPI narrative: Patient is a 66-year-old female. She has a history of paroxysmal atrial fibrillation. His on anticoagulation for this. In the workups to get an ablation patient had a CT scan of her chest performed. She stated that there were abnormalities seen on the CT scan and so earlier this week she had a bronchoscopy performed for further evaluation of this. She did have a follow-up with her commercial loan closer yesterday. All of the cultures up to this point have been negative however there is 1 culture that is still pending. She states they are fairly convinced that it is a bacterial infection but they are not sure what exactly is the bacteria. She is not currently on any antibiotics. She states she was at her normal state health until this evening when she got up to use the restroom. She states that she felt like she needed to cough and she coughed up some bright red blood. She did not vomit any blood. No fevers. The time my evaluation she states she felt normal. Related Data Home Medications Medication Instructions Recorded Confirmed rivaroxaban 20 mg tablet (Xarelto) 20 mg PO QPM 03/04/21 spironolactone 25 mg tablet 12.5 mg PO DAILY tab 04/02/21 04/02/21 (Aldactone) Previous Rx's Medication Instructions Recorded loratadine 10 mg tablet (Allergy 10 mg PO DAILY #90 tab 11/22/19 Relief (loratadine)) metoprolol tartrate 25 mg tablet 25 mg PO DAILY #90 tab 10/23/20 potassium chloride 10 mEq 10 meq PO DAILY #90 cap 10/23/20 capsule,extended release atorvastatin 20 mg tablet 20 mg PO BEDTIME #90 tab 04/02/21 losartan 25 mg tablet (Cozaar) 25 mg PO DAILY #0.5 tab 04/02/21 metoprolol succinate 25 mg 25 mg PO DAILY #0.5 tab 04/02/21 tablet,extended release 24 hr Allergies Allergy/AdvReac Type Severity Reaction Status Date / Time Sulfa (Sulfonamide Allergy Intermediate Rash Verified 01/23/21 10:17 Antibiotics) pneumococcal vaccine Allergy Mild Rash Verified 01/29/21 08:47 Review of Systems Constitutional Constitutional: Denies fever(s) Cardiovascular Cardiovascular: Denies chest pain and Denies dyspnea Respiratory Respiratory: Denies chest congestion, Reports cough, Reports hemoptysis and Denies dyspnea Gastrointestinal Gastrointestinal: Denies abdominal pain, Denies nausea and Denies vomiting Integumentary/Breasts Skin/Breast: Reports system reviewed and no additional complaints, except as documented Hematologic/Lymphatic On Anticoagulants: Yes Patient History Medical History (Updated 09/28/21 @ 04:47 by Nic Guerrero DO) Atrial fibrillation (~2015) Cardiac arrhythmia (~2013) Cervical cancer (~1991) Chicken pox Colitis (~2014) GERD (gastroesophageal reflux disease) (~2008) Hypertension (~2000) Mumps Seasonal allergies Shoulder pain (~2015) Sleep apnea (~2016) Vertigo (~2010) Surgical History History of hysterectomy (~04/1992) Family History Father Cancer Mother Cancer Hypertension Sister Cancer Sister Hypertension Social History marital status: household members: spouse pets and animals: Yes education level: college nuria/temple: buddhist other: travel,ride motorcycle,hiking,snorkeling seatbelt use: always helmet use: Yes water heater temp set < 120 deg: Yes working smoke detector in home: Yes fire extinguisher in home: Yes carbon monox detector in home: Yes firearms in home: Yes do you feel safe at home: Yes Smoking Status: Never smoker second hand exposure: No alcohol intake: never substance use type: does not use during the past year weight has: decreased > 10 lbs well-balanced diet: daily or most days daily servings fruits/ve or more times/day caffeine: Yes eating out: rarely or never Type(s) of exercise: walking frequency: 3-4 times per week duration: 45-60 minutes/day Smoking Status: Never smoker alcohol intake frequency: 0-2 drinks per day Substance Use Type: does not use Exam Initial Vital Signs Initial Vital Signs: Vital Signs Temperature 97.9 F 09/28/21 04:00 Pulse Rate 64 09/28/21 04:00 Respiratory Rate 18 09/28/21 04:00 Blood Pressure 152/72 H 09/28/21 04:00 Pulse Oximetry 99 09/28/21 04:00 HENMT Head: normal to inspection and normocephalic Resp Effort & Inspection: normal respiratory effort Auscultation: clear to auscultation bilaterally Cardio Rate: regular rate Rhythm: regular rhythm GI Inspection: normal to inspection Skin General: no rashes or lesions noted Neuro General: patient alert, patient awake and moves all extremities Extrem General: capillary refill normal Psych Appearance: grossly normal and well kempt Course Orders Ordered: ED Orders 09/28/21 04:06 CXR [XR chest 1V] Stat Vital Signs Vital signs: Vital Signs - 8 hr 09/28/21 04:00 Temperature 97.9 F Pulse Rate 64 Respiratory Rate 18 Blood Pressure 152/72 H Pulse Oximetry 99 Medical Decision Making Imaging Data Chest x-ray: My Impression: No focal consolidations. MDM Narrative Medical decision making narrative: Patient's vital signs unremarkable. She is not in atrial fibrillation. She has a clear lung exam. Not hypoxic. Not tachypneic. Chest x-ray shows no acute pathology. Had a discussion with her and her regarding the symptoms. She does have multiple things that could potentially be causing the issue. She apparently has a bacterial infection in her lungs, she recently had a bronchoscopy is she is also on anticoagulation. It could be any number these are combination of these causing the symptoms. I have low suspicion for pulmonary embolism given her presentation. I do feel that we can hold on further radiologic studies past the chest x-ray. She will continue all of her medications as directed. She was given very strict return precautions. She expressed understanding and agreement. Discharge Plan Departure Patient Disposition: Home Clinical Impression: Hemoptysis Instructions: DI for Hemoptysis Activity Restrictions/Additional Instructions: I do recommend that you continue all of your medications as directed. Contact your commercial loan closer for a follow-up. Return to the emergency department for any new or worsening symptoms. Prescriptions: No Action loratadine [Allergy Relief (loratadine)] 10 mg tablet 10 mg PO DAILY Qty: 90 2RF atorvastatin 20 mg tablet 20 mg PO BEDTIME Qty: 90 2RF spironolactone [Aldactone] 25 mg tablet 12.5 mg PO DAILY 0RF losartan [Cozaar] 25 mg tablet 25 mg PO DAILY Qty: 0.5 0RF metoprolol succinate 25 mg tablet extended release 24 hr 25 mg PO DAILY Qty: 0.5 0RF metoprolol tartrate 25 mg tablet 25 mg PO DAILY Qty: 90 3RF potassium chloride 10 mEq capsule, extended release 10 meq PO DAILY Qty: 90 3RF Xarelto 20 mg tablet 20 mg PO QPM 0RF Rx Instructions: must administer with evening meal Referrals: Sandrita Alejandra MD [Primary Care Provider] -
[2021-09-28 04:52] VITALS: BP 121/58; PULSE 60; RESP 18; O2SAT 96
== END 2021-09-28 04:54 | disposition home or self-care (01) ==
PROVIDERS: Emergency Provider Emergency Medicine; Family Provider Family Medicine; PCP Family Medicine
DX: R04.2 Hemoptysis (principal)
CPT/HCPCS: 71045; 99283

== ENCOUNTER 2021-10-07 01:34 | Emergency (ER) | payer MEDICARE, OTHER, SELFPAY ==
[2021-10-07] VITALS (15 sets, daily range): BP systolic 131–195; BP diastolic 62–84; PULSE 64–87; RESP 13–34; TEMP 36.6; O2SAT 95–100
--- NOTE | 2021-10-07 01:58 | DI.RAD.S_ITS ---
PROCEDURE: XR CHEST 1V INDICATIONS: hemoptosis TECHNIQUE: One view of the chest was acquired. COMPARISON: [facility], CR, XR CHEST 1V, 09/28/2021, 4:09. FINDINGS: Surgical changes and devices: None. Lungs and pleura: Patchy opacities in the right lung base. No pleural effusions or pneumothorax. Mediastinum: Mediastinal contours appear normal. Heart size is normal. Bones and chest wall: No suspicious bony lesions. Overlying soft tissues appear unremarkable. IMPRESSION: Patchy opacities in the right lung base concerning for pneumonia. Dictated by: Sharonda Wilburn MD, PhD on 10/07/2021 at 7:57 Approved by: Sharonda Wilburn MD, PhD on 10/07/2021 at 7:57
--- NOTE | 2021-10-07 02:04 | ED.GENADULT ---
HPI - General Adult General Chief complaint: Upper Respiratory Symptoms Stated complaint: coughing up blood, Time Seen by Provider: 10/07/21 01:57 Source: patient and family Mode of arrival: Ambulatory History of Present Illness HPI narrative: 66-year-old woman with history of paroxysmal atrial fibrillation on Xarelto presents with acute hemoptysis. She had been scheduled for cardiac ablation for the paroxysmal atrial fibrillation abnormality was appreciated on the CT scan. She had a bronchoscopy and was determined to have a bacterial infection. She was started on antibiotics and on September 28 was seen in the emergency department with acute hemoptysis. The Xarelto was discontinued she has continued her antibiotics and is still on them. Xarelto was reinstituted 3 days ago and at 11:00 p.m. last night she awoke up with acute hemoptysis. She is coughing up moderate clots and is clearing her airway. She is not febrile. She is maintaining saturations. She is having difficulty speaking due to the severity of coughing with hemoptysis however her notes that she had been doing quite well until 11 o'clock this evening. No fevers, has not been coughing until the hemoptysis started this evening. No vomiting, diarrhea, abdominal pain, headaches, acute neurologic findings. Related Data Home Medications Medication Instructions Recorded Confirmed rivaroxaban 20 mg tablet (Xarelto) 20 mg PO QPM 03/04/21 spironolactone 25 mg tablet 12.5 mg PO DAILY tab 04/02/21 04/02/21 (Aldactone) Previous Rx's Medication Instructions Recorded loratadine 10 mg tablet (Allergy 10 mg PO DAILY #90 tab 11/22/19 Relief (loratadine)) metoprolol tartrate 25 mg tablet 25 mg PO DAILY #90 tab 10/23/20 potassium chloride 10 mEq 10 meq PO DAILY #90 cap 10/23/20 capsule,extended release atorvastatin 20 mg tablet 20 mg PO BEDTIME #90 tab 04/02/21 losartan 25 mg tablet (Cozaar) 25 mg PO DAILY #0.5 tab 04/02/21 metoprolol succinate 25 mg 25 mg PO DAILY #0.5 tab 04/02/21 tablet,extended release 24 hr Allergies Allergy/AdvReac Type Severity Reaction Status Date / Time Sulfa (Sulfonamide Allergy Intermediate Rash Verified 01/23/21 10:17 Antibiotics) pneumococcal vaccine Allergy Mild Rash Verified 01/29/21 08:47 Review of Systems Review of Systems Narrative: Remainder of complete review of systems is otherwise unremarkable except for that included in the HPI. Patient History Medical History (Updated 10/07/21 @ 04:19 by Gaye Rubio MD) Atrial fibrillation (~2015) Cardiac arrhythmia (~2013) Cervical cancer (~1991) Chicken pox Colitis (~2014) GERD (gastroesophageal reflux disease) (~2008) Hypertension (~2000) Mumps Seasonal allergies Shoulder pain (~2015) Sleep apnea (~2016) Vertigo (~2010) Surgical History History of hysterectomy (~04/1992) Family History Father Cancer Mother Cancer Hypertension Sister Cancer Sister Hypertension Social History marital status: household members: spouse pets and animals: Yes education level: college nuria/orthodoxy: rastafarian other: travel,ride motorcycle,hiking,snorkeling seatbelt use: always helmet use: Yes water heater temp set < 120 deg: Yes working smoke detector in home: Yes fire extinguisher in home: Yes carbon monox detector in home: Yes firearms in home: Yes do you feel safe at home: Yes Smoking Status: Never smoker second hand exposure: No alcohol intake: never substance use type: does not use during the past year weight has: decreased > 10 lbs well-balanced diet: daily or most days daily servings fruits/ve or more times/day caffeine: Yes eating out: rarely or never Type(s) of exercise: walking frequency: 3-4 times per week duration: 45-60 minutes/day Smoking Status: Never smoker alcohol intake frequency: 0-2 drinks per day Substance Use Type: does not use Exam Initial Vital Signs Initial Vital Signs: Vital Signs Temperature 97.8 F 10/07/21 01:55 Pulse Rate 78 10/07/21 01:55 Respiratory Rate 18 10/07/21 01:55 Blood Pressure 195/84 H 10/07/21 01:55 Pulse Oximetry 97 10/07/21 01:55 General: Healthy appearing, moderate distress with coughing with hemoptysis productive of moderate clots with each cough.. Well-nourished well-developed HEENT: Moist mucous membranes, normal sclera with reactive pupils, Respiratory: Lungs with rhonchi through the right posterior lobes, no wheezing Full and symmetrical air movement Cardiac: Regular rate and rhythm no murmurs no bruits Abdomen: Soft, nontender, good bowel tones, no flank pain Skin: Warm and dry, no rashes Neurologic: Grossly neurologically intact with no obvious asymmetries or abnormalities Extremities: No trauma, well perfused Psych: Cooperative, appropriate insight and affect Course Orders Ordered: ED Orders 10/07/21 01:50 Complete Blood Count AUTO DIFF Stat Comprehensive Metabolic Panel Stat Type and Screen Stat 10/07/21 01:58 XR chest 1V Stat 10/07/21 02:57 COVID19 -Nasal RAPID/Pre-Proc Stat 10/07/21 05:00 Urine Culture Stat Urine Microscopic Stat Discontinued Medications Prothrombin Complex Concent ( Human) 1,500 unit/Miscellaneous 60 mls @ 457.222 mls/hr IV NOW ONE; Protocol Stop: 10/07/21 02:10 Last Infusion: 10/07/21 03:36 Dose: 0 unit/kg/min, 0 mls/hr Documented by: Admin: 10/07/21 02:51 Dose: 3 unit/kg/min, 457.222 mls/hr Documented by: STONE Prothrombin Complex Concent ( Human) 1,500 unit/Miscellaneous 60 mls @ 457.222 mls/hr IV NOW ONE; Protocol Stop: 10/07/21 02:37 Last Admin: 10/07/21 03:01 Dose: Not Given Documented by: STONE Sodium Chloride (Normal Saline 0.9%) 500 mls @ 1,000 mls/hr IV BOLUS ONE Stop: 10/07/21 04:08 Last Infusion: 10/07/21 04:25 Dose: 0 mls/hr Documented by: Admin: 10/07/21 03:52 Dose: 1,000 mls/hr Documented by: STONE Vital Signs Vital signs: Vital Signs - 8 hr 10/07/21 01:55 10/07/21 02:11 10/07/21 02:30 Temperature 97.8 F Pulse Rate 78 82 68 Respiratory Rate 18 18 Blood Pressure 195/84 H Pulse Oximetry 97 95 96 10/07/21 02:50 10/07/21 03:00 10/07/21 03:30 Temperature Pulse Rate 66 66 87 Respiratory Rate 15 16 33 H Blood Pressure 145/67 H 145/65 H Pulse Oximetry 96 97 98 10/07/21 03:33 10/07/21 04:00 10/07/21 04:01 Temperature Pulse Rate 87 70 74 Respiratory Rate 34 H 22 27 H Blood Pressure 142/64 H Pulse Oximetry 97 95 10/07/21 04:30 10/07/21 04:57 10/07/21 05:00 Temperature Pulse Rate 68 73 73 Respiratory Rate 22 19 16 Blood Pressure 139/64 146/71 H 146/77 H Pulse Oximetry 99 97 96 10/07/21 05:30 10/07/21 06:00 10/07/21 06:30 Temperature Pulse Rate 67 64 69 Respiratory Rate 16 19 13 Blood Pressure 137/63 131/62 136/68 Pulse Oximetry 100 98 99 Medical Decision Making Medical Records Medical records narrative: Bronch 5/2. Biopsy neg. Started on cefuroxime 500 mg twice a day on October 01 is due to complete the course tomorrow Lab Data Result diagrams: 10/07/21 01:50 10/07/21 01:50 Labs: Lab Results 10/07/21 10/07/21 10/07/21 Range/Units 01:50 01:50 01:50 WBC 6.6 (4.5-11.0) X10^3/uL RBC 3.93 L (4.0-5.2) X10^6/uL Hgb 12.2 (12.0-16.0) g/dL Hct 36.1 (36-46) % MCV 91.9 (80-100) fL MCH 31.1 (26-34) PG MCHC 33.8 (30-36) % RDW 12.6 (11.6-14.8) % Plt Count 256 (150-400) X10^3/uL Neut % (Auto) 50.7 (50-75) % Lymph % (Auto) 39.0 (25-40) % [place] % (Auto) 8.4 (3-14) % Eos % (Auto) 1.6 L (2-4) % Baso % (Auto) 0.3 (0-2) % Neut # (Auto) 3300 (0903-6544) /uL Lymph # (Auto) 2600 (3140-6545) /uL [place] # (Auto) 600 (0-900) /uL Eos # (Auto) 100 (0-450) /uL Baso # (Auto) 0 (0-100) /uL Sodium 139 (137-145) mmol/L Potassium 3.9 (3.4-5.1) mmol/L Chloride 101 (98-107) mmol/L Carbon Dioxide 28 (22-32) mmol/L BUN 14 (7-17) mg/dL Creatinine 0.62 (0.52-1.04) mg/dL Estimated GFR > 60 (>60) mL/min BUN/Creatinine Ratio 22.6 H (6-22) Glucose 112 H (80-110) mg/dL Calcium 9.1 (8.4-10.2) mg/dL Total Bilirubin 0.5 (0.2-1.3) mg/dL AST 38 H (14-36) IU/L ALT 32 (<35) IU/L Alkaline Phosphatase 73 (38-126) U/L Total Protein 8.8 H (6.3-8.2) g/dL Albumin 4.7 (3.5-5.0) g/dL Globulin 4.1 (1.7-4.1) g/dL Albumin/Globulin Ratio 1.1 (1.0-2.8) Urine RBC (0-5/HPF) Urine WBC (0-5/HPF) Ur Squamous Epith Cells (0-5/HPF) Urine Bacteria (None) Ur Culture Indicated? SARS-CoV-2 (PCR) (Negative) Blood Type B Positive Antibody Screen Negative 10/07/21 10/07/21 Range/Units 02:57 05:00 WBC (4.5-11.0) X10^3/uL RBC (4.0-5.2) X10^6/uL Hgb (12.0-16.0) g/dL Hct (36-46) % MCV (80-100) fL MCH (26-34) PG MCHC (30-36) % RDW (11.6-14.8) % Plt Count (150-400) X10^3/uL Neut % (Auto) (50-75) % Lymph % (Auto) (25-40) % [place] % (Auto) (3-14) % Eos % (Auto) (2-4) % Baso % (Auto) (0-2) % Neut # (Auto) (3199-8752) /uL Lymph # (Auto) (5835-5920) /uL [place] # (Auto) (0-900) /uL Eos # (Auto) (0-450) /uL Baso # (Auto) (0-100) /uL Sodium (137-145) mmol/L Potassium (3.4-5.1) mmol/L Chloride (98-107) mmol/L Carbon Dioxide (22-32) mmol/L BUN (7-17) mg/dL Creatinine (0.52-1.04) mg/dL Estimated GFR (>60) mL/min BUN/Creatinine Ratio (6-22) Glucose (80-110) mg/dL Calcium (8.4-10.2) mg/dL Total Bilirubin (0.2-1.3) mg/dL AST (14-36) IU/L ALT (<35) IU/L Alkaline Phosphatase (38-126) U/L Total Protein (6.3-8.2) g/dL Albumin (3.5-5.0) g/dL Globulin (1.7-4.1) g/dL Albumin/Globulin Ratio (1.0-2.8) Urine RBC 5-10/hpf H (0-5/HPF) Urine WBC 1-5/hpf (0-5/HPF) Ur Squamous Epith Cells 1-5 /hpf (0-5/HPF) Urine Bacteria Few (2-10) H (None) Ur Culture Indicated? Specimen cultured SARS-CoV-2 (PCR) Negative (Negative) Blood Type Antibody Screen Urine Dip Bedside Urine Glucose Negative Bedside Urine Bilirubin - Negative Bedside Urine Ketone - Negative Urine Specific [place] 1.015 Bedside Urine Occult Blood ++ Bedside Urine pH 6.0 Bedside Urine Protein - Negative Bedside Urine Urobilinogen - Negative Bedside Urine Nitrite - Negative Bedside Urine Leukocytes + 70 Esterase Point of care testing: Urine Dip Bedside Urine Glucose Negative Bedside Urine Bilirubin - Negative Bedside Urine Ketone - Negative Urine Specific [place] 1.015 Bedside Urine Occult Blood ++ Bedside Urine pH 6.0 Bedside Urine Protein - Negative Bedside Urine Urobilinogen - Negative Bedside Urine Nitrite - Negative Bedside Urine Leukocytes + 70 Esterase Imaging Data Chest x-ray: Radiologist's Impression: Persistent ill-defined opacities within the right middle, right lower and left upper lobe. No pneumothorax pleural effusion or congestive changes. Heart size is normal. Nani Denise MD [facility] Narrative Medical decision making narrative: 66-year-old woman with paroxysmal AFib anticoagulated on Xarelto with recent bronchoscopy 09/23 for abnormality appreciated on chest imaging. Seen on September 28 with hemoptysis and was instructed to discontinue her Xarelto. On October 01 she was started on cefuroxime 500 b.i.d. by her multiple sclerosis nurse and instructed to restart Xarelto on 10/04. She had been doing well over the weekend but awoke at 11:00 p.m. with significant hemoptysis. She is cough enough to have a fully formed clot, estimated 1-2 cc with each cough and coughing into a tissue. Over the last 3 hours she has had enough tissues to fill up to [employer] grocery bag size wall and 1 entire emesis container with tissue. Estimated 100 cc. At this time she is hemodynamically stable, H&H is stable at 12.2 comparison is at 12.3. She has been given Kcentra to reverse her Xarelto. She is maintaining her airway as long as she is sitting upright and allowed to cough freely. Oxygen saturations are in the upper 90s. 2:55am DR Kyle, pulmonology with [facility] is consulted. He agrees with management as outlined above and recommends admission for observation in a monitored setting. At this point she is not yet qualifying for massive hemoptysis but certainly is at risk for decompensating with the volume that she is coughing. He agreed that a setting with ICU care and pulmonology/product design specialist available would be most appropriate. Bed availability throughout the [facility] is critically short at this time. No beds available at [facility] in [place] (she is placed on their waiting list), [facility] (no waiting list), [facility](days long wait list). Will continue additional phone calls for bed availability. [place], possible after 10am. 330am Kcentra has been given and patient is re-evaluated. Her coughing continues to be dramatic and the amount of blood coming up with each cough is increasing. I am concerned or approaching the threshold for more than 100 mils per hour of hemoptysis and concerned about the need for transfer to facility with bronchoscopy capacity. She continues to be hemodynamically stable and is still saturating in the upper 90s however she is clearly fatiguing from the persistent cough. [facility] transfer center is again contacted with updated acuity of patient's clinical deterioration. 415 cough is slowing somewhat. She is able to now speak in short sentences. Volume of blood with each cough also seems to be diminishing. Not every cough has a significant clot, all still have blood. She is still having too much gross hemoptysis to lay flat and would not be able to tolerate holding still long enough to attempt CTA at this time. [address] Mcginnis, multiple sclerosis nurse [facility] who accepts patient in transfer to the medical ICU [facility]. She did suggest that if bleeding were to again worsen attempting TXA nebulizer could be tried. If patient worsens and needs to be intubated she requested at least an 8.0 ET tube in anticipation of bronchoscopy Plans are reveiwed with patient Critical Care Time Critical Care Time Critical Care Time: Yes Total Critical Care Time: 47 Attestation: Critical care time is separate from other billable procedures. There is a high probability of a significant, sudden or life-threatening deterioration that requires my full and direct attention, intervention and personal management. This critical care time includes consultation with family and other consulting doctors, review of records, and interpretation of data from labs, EKGs and imaging as well as managements of life-threatening hemoptysis with airway compromise Discharge Plan Departure Patient Disposition: [facility] Clinical Impression: Hemoptysis Prescriptions: No Action loratadine [Allergy Relief (loratadine)] 10 mg tablet 10 mg PO DAILY Qty: 90 2RF atorvastatin 20 mg tablet 20 mg PO BEDTIME Qty: 90 2RF spironolactone [Aldactone] 25 mg tablet 12.5 mg PO DAILY 0RF losartan [Cozaar] 25 mg tablet 25 mg PO DAILY Qty: 0.5 0RF metoprolol succinate 25 mg tablet extended release 24 hr 25 mg PO DAILY Qty: 0.5 0RF metoprolol tartrate 25 mg tablet 25 mg PO DAILY Qty: 90 3RF potassium chloride 10 mEq capsule, extended release 10 meq PO DAILY Qty: 90 3RF Xarelto 20 mg tablet 20 mg PO QPM 0RF Rx Instructions: must administer with evening meal Referrals: Sandrita Alejandra MD [Primary Care Provider] -
[2021-10-07 02:11] LABS: Add Manual Diff / Slide Review NO; Basophils Absolute Auto 0 /uL (0-100); Basophils Percent Auto 0.3 % (0-2); Eosinophils Absolute Auto 100 /uL (0-450); Eosinophils Percent Auto 1.6 % (2-4); Hematocrit 36.1 % (36-46); Hemoglobin 12.2 g/dL (12.0-16.0); Lymphocytes Absolute Auto 2600 /uL (1100-4500); Mean Corpuscular HGB Conc 33.8 % (30-36); Mean Corpuscular Hemoglobin 31.1 PG (26-34); Mean Corpuscular Volume 91.9 fL (80-100); Monocytes Absolute Auto 600 /uL (0-900); Monocytes Percent Auto 8.4 % (3-14); Neutrophils Absolute Auto 3300 /uL (1500-7000); Neutrophils Percent Auto 50.7 % (50-75); Platelet Count 256 X10^3/uL (150-400); Red Blood Cell Count 3.93 X10^6/uL (4.0-5.2); Red Cell Distribution Width 12.6 % (11.6-14.8); White Blood Cell Count 6.6 X10^3/uL (4.5-11.0)
[2021-10-07 02:15] LABS: Alanine Aminotransferase 32 IU/L (<35); Albumin 4.7 g/dL (3.5-5.0); Albumin Globulin Ratio 1.1 (1.0-2.8); Alkaline Phosphatase 73 U/L (38-126); Aspartate Aminotransferase 38 IU/L (14-36); BUN Creatinine Ratio 22.6 (6-22); Bilirubin Total 0.5 mg/dL (0.2-1.3); Blood Urea Nitrogen 14 mg/dL (7-17); Calcium 9.1 mg/dL (8.4-10.2); Carbon Dioxide 28 mmol/L (22-32); Chloride 101 mmol/L (98-107); Estimated Glomerular Filt Rate > 60 mL/min (>60); Globulin 4.1 g/dL (1.7-4.1); Glucose 112 mg/dL (80-110); HEMOLYSIS < 15 (0-50); Potassium 3.9 mmol/L (3.4-5.1); Sodium 139 mmol/L (137-145); Total Protein 8.8 g/dL (6.3-8.2)
[2021-10-07] MEDS: PROTHROMBIN CPLX(PCC)4FACT 1,500 UNIT in ISOOSMOTIC VEHICLE 0 ML 457.222 UNIT IV (02:51)
[2021-10-07 03:13] LABS: COVID19 -Nasal RAPID Negative (Negative)
[2021-10-07] MEDS: SODIUM CHLORIDE 0.9% 500 ML 1000 ML IV (03:52)
[2021-10-07 05:07] LABS: Bacteria Urine Few (2-10); RBC Urine 5-10/HPF (0-5/HPF); WBC Urine 1-5/HPF (0-5/HPF)
[2021-10-07 05:08] LABS: Culture Indicated Urine Specimen Cultured; Squamous Epithelial Cell Urine 1-5 /HPF (0-5/HPF)
== END 2021-10-07 06:46 | disposition short-term general hospital (02) ==
PROVIDERS: Emergency Provider Emergency Medicine; Family Provider Family Medicine; PCP Family Medicine
DX: R04.2 Hemoptysis (principal); I48.0 Paroxysmal atrial fibrillation; Z79.01 Long term (current) use of anticoagulants; R41.0 Disorientation, unspecified; Z20.822 Contact with and (suspected) exposure to COVID-19
CPT/HCPCS: 36415; 71045; 80053; 81003; 81015; 85025; 86850; 86900; 86901; 87086; 87635; 96361; 96365; 99284; C9803; J7168

== ENCOUNTER → 2021-11-27 09:57 | Outpatient (CLI) | payer MEDICARE, OTHER, SELFPAY ==
[2021-11-27 10:48] LABS: Add Manual Diff / Slide Review NO; Basophils Absolute Auto 0 /uL (0-100); Basophils Percent Auto 0.3 % (0-2); Eosinophils Absolute Auto 100 /uL (0-450); Eosinophils Percent Auto 2.1 % (2-4); Hematocrit 37.7 % (36-46); Hemoglobin 12.7 g/dL (12.0-16.0); Lymphocytes Absolute Auto 1500 /uL (1100-4500); Lymphocytes Percent Auto 31.3 % (25-40); Mean Corpuscular HGB Conc 33.6 % (30-36); Mean Corpuscular Hemoglobin 31.1 PG (26-34); Mean Corpuscular Volume 92.6 fL (80-100); Monocytes Absolute Auto 400 /uL (0-900); Monocytes Percent Auto 8.9 % (3-14); Neutrophils Absolute Auto 2700 /uL (1500-7000); Neutrophils Percent Auto 57.4 % (50-75); Platelet Count 240 X10^3/uL (150-400); Red Blood Cell Count 4.07 X10^6/uL (4.0-5.2); Red Cell Distribution Width 12.8 % (11.6-14.8); White Blood Cell Count 4.8 X10^3/uL (4.5-11.0)
[2021-11-27 11:10] LABS: HEMOLYSIS < 15 (0-50)
[2021-11-27 11:18] LABS: Triglycerides 97 mg/dL (35-150)
== END ==
PROVIDERS: Family Provider Family Medicine; PCP Family Medicine; Referring Provider Family Medicine; Visit Provider Family Medicine
DX: I10 Essential (primary) hypertension (principal); I48.91 Unspecified atrial fibrillation; K21.9 Gastro-esophageal reflux disease without esophagitis; E87.6 Hypokalemia; E78.1 Pure hyperglyceridemia
CPT/HCPCS: 36415; 84132; 84478; 85025

== ENCOUNTER → 2022-02-06 08:48 | Outpatient (CLI) | payer MEDICARE, OTHER, SELFPAY ==
[2022-02-06 09:41] LABS: COVID19 -Nasal RAPID Negative (Negative)
== END ==
PROVIDERS: Family Provider Family Medicine; PCP Family Medicine; Referring Provider Internal Medicine; Visit Provider Internal Medicine
DX: Z20.822 Contact with and (suspected) exposure to COVID-19 (principal)
CPT/HCPCS: 87635; C9803

== ENCOUNTER → 2022-02-06 10:49 | Outpatient (CLI) | payer MEDICARE, OTHER, SELFPAY ==
--- NOTE | 2022-02-16 17:10 | PM.PFT.1 ---
Pulmonary Function Test Referral & Results Date Patient Seen: 02/06/22 Requesting provider: Pee Nuno Results: The spirometry demonstrates an FVC of 2.81 L which is 86% of predicted. The FEV1 was measured at 2.23 L which is 90% of predicted. The FEV1/FVC ratio was 79 which is 102% of predicted. The diffusing capacity was measured at 22.71 which is 88% of predicted. Interpretation: This study demonstrates normal spirometry and probably normal diffusing capacity
== END ==
PROVIDERS: Family Provider Family Medicine; PCP Family Medicine; Referring Provider Internal Medicine; Visit Provider Internal Medicine
DX: A31.0 Pulmonary mycobacterial infection (principal); Z20.822 Contact with and (suspected) exposure to COVID-19; Z78.0 Asymptomatic menopausal state; Z13.9 Encounter for screening, unspecified; M85.89 Other specified disorders of bone density and structure, multiple sites; J98.8 Other specified respiratory disorders
CPT/HCPCS: 77080; 87635; 94010; 94729; C9803

== ENCOUNTER → 2022-02-06 10:51 | Outpatient (CLI) | payer MEDICARE, OTHER, SELFPAY | PROVIDERS: Family Provider Family Medicine; PCP Family Medicine; Referring Provider Family Medicine; Visit Provider Family Medicine | DX: Z78.0 Asymptomatic menopausal state (principal); Z13.9 Encounter for screening, unspecified; M85.89 Other specified disorders of bone density and structure, multiple sites | CPT/HCPCS: 77080 ==

== ENCOUNTER → 2022-02-27 09:26 | Outpatient (CLI) | payer MEDICARE, OTHER, SELFPAY ==
[2022-02-27 10:33] LABS: Creatinine Urine Random 58.7 mg/dL
[2022-02-27 10:38] LABS: Microalbumin Urine Random < 0.6 mg/dL (0-1.6)
[2022-02-27 10:46] LABS: Hemoglobin A1C% w Est Avg Glu 5.8 % (4.0-6.0)
[2022-02-27 11:01] LABS: Alanine Aminotransferase 21 IU/L (<35); Albumin 4.6 g/dL (3.5-5.0); Albumin Globulin Ratio 1.3 (1.0-2.8); Alkaline Phosphatase 65 U/L (38-126); Aspartate Aminotransferase 27 IU/L (14-36); BUN Creatinine Ratio 25.4 (6-22); Bilirubin Total 0.5 mg/dL (0.2-1.3); Blood Urea Nitrogen 17 mg/dL (7-17); Calcium 9.5 mg/dL (8.4-10.2); Carbon Dioxide 30 mmol/L (22-32); Chloride 101 mmol/L (98-107); Cholesterol 138 mg/dL (140-199); Estimated Glomerular Filt Rate > 60 mL/min (>60); Globulin 3.5 g/dL (1.7-4.1); Glucose 100 mg/dL (80-110); HDL Cholesterol 68 mg/dL (40-60); HEMOLYSIS < 15 (0-50); LDL Cholesterol Calculated 49 mg/dL (<100); Potassium 4.1 mmol/L (3.4-5.1); Sodium 139 mmol/L (137-145); Total Protein 8.1 g/dL (6.3-8.2); Triglycerides 106 mg/dL (35-150)
== END ==
PROVIDERS: Family Provider Family Medicine; PCP Family Medicine; Referring Provider Family Medicine; Visit Provider Family Medicine
DX: R73.03 Prediabetes (principal); I10 Essential (primary) hypertension
CPT/HCPCS: 36415; 80053; 80061; 82043; 82570; 83036

== ENCOUNTER → 2022-04-18 11:12 | Outpatient (CLI) | payer MEDICARE, OTHER, SELFPAY ==
--- NOTE | 2022-04-18 11:14 | DI.MG.S_ITS ---
BILATERAL DIGITAL SCREENING MAMMOGRAM 3D/2D WITH CAD: 04/18/2022 CLINICAL: Routine screening. Family history of breast cancer. Comparison is made to exams dated: 04/16/2021 mammogram, 03/05/2020 mammogram, and 01/17/2019 mammogram - [facility]. Both breasts are heterogeneously dense, which may obscure small masses (category c / 51-75% glandular tissue). Current study was also evaluated with a Computer Aided Detection (CAD) system. No significant masses, calcifications, or other findings are seen in either breast. There has been no significant interval change. IMPRESSION: NEGATIVE There is no mammographic evidence of malignancy. A 1 year screening mammogram is recommended. Based on the Tyrer Cuzick model (a risk assessment model) the patient's lifetime risk is 7.5% and her 10 year risk is 3.8%. According to the ACR, ACS, and NCCN guidelines, an annual breast MRI exam along with mammogram is recommended if the patient's lifetime risk is 20% or greater. This exam was interpreted at Station ID: [id number]. NOTE: For mammograms, a report in lay terms will be sent to the patient. Approximately 15% of breast malignancies will not be visualized mammographically. In the management of a palpable breast mass, a negative mammogram must not discourage biopsy of a clinically suspicious lesion. Electronically Signed By: Charles [email or web address]/[email or web address]:04/18/2022 16:06:09 letter sent: Normal Exam ACR BI-RADS Category 1: Negative 3341F
== END ==
PROVIDERS: Family Provider Family Medicine; PCP Family Medicine; Referring Provider Family Medicine; Visit Provider Family Medicine
DX: Z12.31 Encounter for screening mammogram for malignant neoplasm of breast (principal); Z80.3 Family history of malignant neoplasm of breast
CPT/HCPCS: 77063; 77067

== ENCOUNTER → 2022-08-18 10:04 | Outpatient (CLI) | payer MEDICARE, OTHER, SELFPAY ==
[2022-08-18 11:40] LABS: Alanine Aminotransferase 25 IU/L (<35); Albumin 4.3 g/dL (3.5-5.0); Albumin Globulin Ratio 1.2 (1.0-2.8); Alkaline Phosphatase 57 U/L (38-126); Aspartate Aminotransferase 27 IU/L (14-36); BUN Creatinine Ratio 27.9 (6-22); Bilirubin Total 0.5 mg/dL (0.2-1.3); Blood Urea Nitrogen 19 mg/dL (7-17); Carbon Dioxide 31 mmol/L (22-32); Chloride 100 mmol/L (98-107); Cholesterol 132 mg/dL (140-199); Estimated Glomerular Filt Rate > 60 mL/min (>60); Globulin 3.6 g/dL (1.7-4.1); Glucose 101 mg/dL (80-110); HDL Cholesterol 55 mg/dL (40-60); HEMOLYSIS < 15 (0-50); LDL Cholesterol Calculated 56 mg/dL (<100); Sodium 138 mmol/L (137-145); Total Protein 7.9 g/dL (6.3-8.2); Triglycerides 104 mg/dL (35-150)
== END ==
PROVIDERS: Family Provider Family Medicine; PCP Family Medicine; Referring Provider Family Medicine; Visit Provider Family Medicine
DX: I10 Essential (primary) hypertension (principal)
CPT/HCPCS: 80053; 80061

== ENCOUNTER → 2022-11-27 10:07 | Outpatient (CLI) | payer MEDICARE, OTHER, SELFPAY ==
[2022-11-27 12:35] LABS: Cholesterol 185 mg/dL (140-199); HDL Cholesterol 53 mg/dL (40-60); LDL Cholesterol Calculated 99 mg/dL (<100); Triglycerides 166 mg/dL (35-150)
== END ==
PROVIDERS: Family Provider Family Medicine; PCP Family Medicine; Referring Provider Family Medicine; Visit Provider Family Medicine
DX: E78.5 Hyperlipidemia, unspecified; R73.9 Hyperglycemia, unspecified
CPT/HCPCS: 36415; 80061; 83036

== ENCOUNTER → 2023-02-17 11:51 | Outpatient (CLI) | payer MEDICARE, OTHER, SELFPAY | PROVIDERS: Family Provider Family Medicine; PCP Family Medicine; Referring Provider Internal Medicine; Visit Provider Internal Medicine | DX: R91.1 Solitary pulmonary nodule (principal) | CPT/HCPCS: 71250; 94010; 94729 ==

== ENCOUNTER → 2023-02-17 11:52 | Outpatient (CLI) | payer MEDICARE, OTHER, SELFPAY ==
--- NOTE | 2023-02-17 | DI.CT.S_ITS ---
PROCEDURE: CT CHEST WO CON INDICATIONS: Solitary pulmonary nodule TECHNIQUE: Noncontrast 5 mm thick sections acquired from the pulmonary apices to the posterior costophrenic angles. 1 mm lung window, 5 mm thick coronal and sagittal and 7 mm axial MIP reformats were then acquired. For radiation dose reduction, the following was used: automated exposure control, adjustment of mA and/or kV according to patient size. COMPARISON: [facility], CT, CT ANGIO CHEST, 06/24/2021, 14:15. Outside Film, CT, CT ANGIO CHEST, 08/28/2021, 11:01. FINDINGS: Image quality: Excellent. Lungs and pleura: Scattered airspace opacities are present at the right apex which are unchanged from the study dated June 24, 2021. A partially calcified pulmonary nodule is redemonstrated within the posterior right upper lobe and is also unchanged. The spiculated mass within the superior aspect of the right middle lobe has resolved. However, the ill-defined nodular airspace opacities within the mid and inferior aspect of the right middle lobe appear increased in extent when compared with the prior study. Nodular tree-in-bud pulmonary radiopacities are present in this region. There is some bronchiectasis and bronchial wall thickening as well. Atelectasis or scarring and mild bronchiectasis is redemonstrated at the lingular base and appears unchanged. No pleural effusion or pneumothorax. Mediastinum: Heart size is normal. No pericardial effusion. No mediastinal adenopathy by size criteria. Thoracic aorta and central pulmonary arteries are normal in size. Scattered atheromatous calcifications are present within the aortic arch. Esophagus is normal in caliber. No hiatal hernia. Bones and chest wall: No suspicious bony lesions. No vertebral body compression fractures. No axillary or supraclavicular adenopathy by size criteria. Thyroid gland is unremarkable . Abdomen: Visualized upper abdominal solid organs and bowel loops appear normal in the absence of contrast. IMPRESSION: 1. Resolution of the more superior right middle lobe pulmonary radiopacity when compared with the prior CT dated August 28, 2021. 2. Increased extent of the airspace opacities within the inferior aspect of the right middle lobe with associated bronchiectasis, bronchial wall thickening, and scattered tree-in-bud pulmonary radiopacities. Findings are suspicious for indolent infection. However, neoplasm cannot be excluded. 3 month follow-up CT is recommended to ensure resolution of this finding. If clinically indicated, CT-guided percutaneous biopsy could be performed. Dictated by: Janis Chapin M.D. on 02/17/2023 at 14:19 Approved by: Janis Chapin M.D. on 02/17/2023 at 14:43
== END ==
PROVIDERS: Family Provider Family Medicine; PCP Family Medicine; Referring Provider Internal Medicine; Visit Provider Internal Medicine
DX: R91.1 Solitary pulmonary nodule (principal)
CPT/HCPCS: 71250

== ENCOUNTER → 2023-04-06 10:40 | Outpatient (CLI) | payer MEDICARE, OTHER, SELFPAY ==
[2023-04-06 11:27] LABS: Cholesterol 204 mg/dL (140-199); HDL Cholesterol 50 mg/dL (40-60); LDL Cholesterol Calculated 110 mg/dL (<100); Triglycerides 219 mg/dL (35-150)
== END ==
PROVIDERS: Family Provider Family Medicine; PCP Family Medicine; Referring Provider Family Medicine; Visit Provider Family Medicine
DX: E78.00 Pure hypercholesterolemia, unspecified (principal)
CPT/HCPCS: 36415; 80061

== ENCOUNTER → 2023-04-25 11:24 | Outpatient (CLI) | payer MEDICARE, OTHER, SELFPAY ==
--- NOTE | 2023-04-25 | DI.MG.S_ITS ---
BILATERAL DIGITAL SCREENING MAMMOGRAM 3D/2D WITH CAD: 04/25/2023 CLINICAL: Routine screening. Family history of breast cancer. Comparison is made to exams dated: 04/18/2022 mammogram, 04/16/2021 mammogram, and 03/05/2020 mammogram - [facility]. Both breasts are heterogeneously dense, which may obscure small masses (category c / 51-75% glandular tissue). Current study was also evaluated with a Computer Aided Detection (CAD) system. No significant masses, calcifications, or other findings are seen in either breast. There has been no significant interval change. IMPRESSION: NEGATIVE There is no mammographic evidence of malignancy. A 1 year screening mammogram is recommended. Based on the Tyrer Cuzick model (a risk assessment model) the patient's lifetime risk is 7.1% and her 10 year risk is 3.7%. According to the ACR, ACS, and NCCN guidelines, an annual breast MRI exam along with mammogram is recommended if the patient's lifetime risk is 20% or greater. This exam was interpreted at Station ID: [id number]. NOTE: For mammograms, a report in lay terms will be sent to the patient. Approximately 15% of breast malignancies will not be visualized mammographically. In the management of a palpable breast mass, a negative mammogram must not discourage biopsy of a clinically suspicious lesion. Electronically Signed By: Charlse cespedes/[email or web address]:04/27/2023 07:16:56 letter sent: Normal Exam ACR BI-RADS Category 1: Negative 3341F
== END ==
PROVIDERS: Family Provider Family Medicine; PCP Family Medicine; Referring Provider Family Medicine; Visit Provider Family Medicine
DX: Z12.31 Encounter for screening mammogram for malignant neoplasm of breast (principal); Z80.3 Family history of malignant neoplasm of breast
CPT/HCPCS: 77063; 77067

== ENCOUNTER 2023-10-01 10:13 | Emergency (ER) | payer MEDICARE, OTHER, SELFPAY ==
[2023-10-01] VITALS (13 sets, daily range): BP systolic 130–158; BP diastolic 67–89; PULSE 70–141; RESP 14–33; TEMP 36.7; O2SAT 95–100; BMI 23.3
--- NOTE | 2023-10-01 10:21 | DI.RAD.S_ITS ---
PROCEDURE: XR CHEST 1V INDICATIONS: chest pain TECHNIQUE: One view of the chest was acquired. COMPARISON: [facility], CR, XR CHEST 1V, 10/07/2021, 1:57. FINDINGS: Surgical changes and devices: None. Lungs and pleura: Lungs are clear. No pleural effusions or pneumothorax. Mediastinum: Mediastinal contours appear normal. Heart size is normal. Bones and chest wall: No suspicious bony lesions. Overlying soft tissues appear unremarkable. IMPRESSION: No acute cardiopulmonary abnormality is seen. Dictated by: Sharonda Wilburn MD, PhD on 10/01/2023 at 10:37 Approved by: Sharonda Wilburn MD, PhD on 10/01/2023 at 10:38
[2023-10-01 10:45] LABS: INR 1.1 (0.9-1.3); Prothrombin Time 12.9 SECONDS (9.4-12.5)
--- NOTE | 2023-10-01 10:46 | ED_ITS ---
HPI - Arrhythmia/Palpitations General Chief Complaint: Arrhythmia/Palpitations Stated Complaint: Afib Time Seen by Provider: 10/01/23 10:46 Source: patient Mode of arrival: Wheelchair Limitations: no limitations History of Present Illness HPI narrative: 60-year-old female with history of atrial fibrillation, hypertension on metoprolol and Eliquis who presents with complaint of sudden onset of rapid heart rate, chest pressure that started at 9:40 a.m.. Patient states she has had a couple palpitations here and there in the past but has been atrial fibrillation free since her ablation in December of 2021. She denies any recent fevers or chills cold cough or congestion. She denies any chest pain, does feel short of breath on onset of her tachycardia. No syncope but has felt lightheaded when she is upright. Denies any diaphoresis. No nausea no vomiting no new swelling of extremities. No other GI or urinary symptoms. Patient has been on her Eliquis regularly for several years. She takes metoprolol daily. No recent changes to doses, no missed doses. She has had an ablation in December of 2021 but no cardiac stents or other interventions. Only other surgery includes hysterectomy. Allergic to sulfa. No tobacco, alcohol or recreational drugs. Dr. Alejandra is her primary care physician. Dr. Grubbs is her office clerk routine at [facility]. Patient has had prior cardioversions emergency department issue. Related Data Home Medications Medication Instructions Recorded Confirmed spironolactone 25 mg tablet 12.5 mg PO DAILY 04/02/21 04/14/23 (Aldactone) apixaban 5 mg tablet 5 mg PO BID A-fib 04/14/23 04/14/23 Previous Rx's Medication Instructions Recorded loratadine 10 mg tablet (Allergy 10 mg PO DAILY #90 tabs 11/22/19 Relief (loratadine)) metoprolol succinate 25 mg 25 mg PO DAILY #90 tabs 03/06/22 tablet,extended release 24 hr clobetasol 0.05 % topical ointment 1 applic topical DAILY #30 grams 06/02/22 potassium chloride 10 mEq See Rx Instructions .Route 10/23/22 capsule,extended release .COMPLEX #90 caps simvastatin 20 mg tablet 20 mg PO BEDTIME #90 tabs 04/14/23 Allergies Allergy/AdvReac Type Severity Reaction Status Date / Time Sulfa (Sulfonamide Allergy Intermediate Rash Verified 10/01/23 10:22 Antibiotics) Review of Systems Review of Systems ROS Unobtainable: All systems reviewed & are unremarkable except as noted in HPI and below Patient History Medical History Pre-diabetes Sleep apnea (~2016) Seasonal allergies Shoulder pain (~2015) Mumps Chicken pox Vertigo (~2010) GERD (gastroesophageal reflux disease) (~2008) Colitis (~2014) Hypertension (~2000) Cardiac arrhythmia (~2013) Atrial fibrillation (~2015) Cervical cancer (~1991) Surgical History History of hysterectomy (~04/1992) Family History Father Cancer Mother Cancer Hypertension Sister Cancer Sister Hypertension Social History marital status: household members: spouse pets and animals: Yes education level: college nuria/judaism: synagogue other: travel,ride motorcycle,hiking,snorkeling seatbelt use: always helmet use: Yes water heater temp set < 120 deg: Yes working smoke detector in home: Yes fire extinguisher in home: Yes carbon monox detector in home: Yes firearms in home: Yes do you feel safe at home: Yes Smoking Status: Never smoker second hand exposure: No alcohol intake: never substance use type: does not use during the past year weight has: decreased > 10 lbs well-balanced diet: daily or most days daily servings fruits/ve or more times/day caffeine: Yes eating out: rarely or never Type(s) of exercise: walking frequency: 3-4 times per week duration: 45-60 minutes/day Smoking Status: Never smoker alcohol intake frequency: holidays/special occasions only Substance Use Type: does not use Exam Narrative Exam Narrative: GENERAL: Alert and oriented x three, well-appearing female in mild distress. HEENT: Head normocephalic, atraumatic, EOMI, pupils reactive, face symmetric, moist mucous membranes NECK: Supple, full range of motion CARDIOVASCULAR: Irregularly irregular and tachycardic without murmurs, rubs or gallops. No JVD. No edema bilateral lower extremities. RESPIRATORY: Breath sounds equal bilaterally, no wheezes rales or rhonchi. No tachypnea or accessory muscle use. ABDOMEN: Soft, nontender. Normoactive bowel sounds all 4 quadrants. No guarding or rebound, rigidity, no mass : No CVA tenderness EXTREMITIES: Normal range of motion, no clubbing or edema. Neurovascularly intact NEUROLOGICAL: Cranial nerves II through XII grossly intact. Moving all extremities SKIN: Warm, dry, no petechiae, no rashes or lesions. Initial Vital Signs Initial Vital Signs: Vital Signs Temperature 98.0 F 10/01/23 10:14 Pulse Rate 118 H 10/01/23 10:14 Respiratory Rate 16 10/01/23 10:14 Blood Pressure 158/89 H 10/01/23 10:14 Pulse Oximetry 100 10/01/23 10:14 Oxygen Delivery Method Room Air 10/01/23 10:14 Course Orders Ordered: ED Orders 10/01/23 10:21 XR chest 1V Stat 10/01/23 10:28 BNP [NT-proBNP (BNP-Adult 18+)] Stat Complete Blood Count AUTO DIFF Stat Comprehensive Metabolic Panel Stat Lipase Stat Magnesium Stat PTT Partial Thromboplastin Dennis Stat Prothrombin Time INR Stat Troponin & CK Cardiac Panel Stat 10/01/23 11:23 EKG-12 Lead Stat Discontinued Medications Diltiazem HCl (Diltiazem 5 Mg/Ml Sdv) 10 mg IV NOW ONE Stop: 10/01/23 10:59 Last Admin: 10/01/23 12:02 Dose: Not Given Documented By: NEGAR Sodium Chloride (Normal Saline 0.9%) 1,000 mls @ 1,000 mls/hr IV BOLUS ONE Stop: 10/01/23 11:57 Last Infusion: 10/01/23 12:03 Dose: Infused Documented By: Admin: 10/01/23 11:12 Dose: 1,000 mls/hr Documented By: NEGAR Metoprolol Succinate (Metoprolol Er 25 Mg Tablet) 12.5 mg PO NOW ONE Stop: 10/01/23 11:26 Last Admin: 10/01/23 11:33 Dose: 12.5 mg Documented By: NEGAR Vital Signs Vital signs: Vital Signs - 8 hr 10/01/23 11:19 10/01/23 11:19 10/01/23 11:20 Pulse Rate 84 79 Respiratory Rate 26 H 14 Blood Pressure 146/83 H Pulse Oximetry 95 97 10/01/23 11:20 10/01/23 11:24 10/01/23 11:24 Pulse Rate 78 Respiratory Rate 33 H Blood Pressure 142/71 H 149/75 H Pulse Oximetry 98 10/01/23 11:30 10/01/23 11:30 10/01/23 11:33 Pulse Rate 78 79 Respiratory Rate 19 Blood Pressure 149/73 H 149/73 H Pulse Oximetry 98 10/01/23 11:45 10/01/23 11:45 10/01/23 12:04 Pulse Rate 78 70 Respiratory Rate 20 Blood Pressure 140/67 140/67 Pulse Oximetry 99 MDM - Arrhythmia/Palpitations Lab Data 10/01/23 10:28 10/01/23 10:28 Labs: Lab Results 10/01/23 Range/Units 10:28 WBC 6.3 (4.5-11.0) X10^3/uL RBC 4.46 (4.0-5.2) X10^6/uL Hgb 13.8 (12.0-16.0) g/dL Hct 40.9 (36-46) % MCV 91.7 (80-100) fL MCH 30.8 (26-34) PG MCHC 33.6 (30-36) % RDW 13.3 (11.6-14.8) % Plt Count 281 (150-400) X10^3/uL Neut % (Auto) 56.0 (50-75) % Lymph % (Auto) 35.7 (25-40) % Gladwin % (Auto) 6.2 (3-14) % Eos % (Auto) 1.5 L (2-4) % Baso % (Auto) 0.6 (0-2) % Neut # (Auto) 3500 (1816-3387) /uL Lymph # (Auto) 2300 (8525-2289) /uL Gladwin # (Auto) 400 (0-900) /uL Eos # (Auto) 100 (0-450) /uL Baso # (Auto) 0 (0-100) /uL PT 12.9 H (9.4-12.5) SECONDS INR 1.1 (0.9-1.3) APTT 45 H (25.1-36.5) SECONDS Sodium 141 (137-145) mmol/L Potassium 3.8 (3.4-5.1) mmol/L Chloride 104 (98-107) mmol/L Carbon Dioxide 27 (22-32) mmol/L BUN 18 H (7-17) mg/dL Creatinine 0.60 (0.52-1.04) mg/dL Estimated GFR > 60 (>60) mL/min BUN/Creatinine Ratio 30.0 H (6-22) Glucose 103 (80-110) mg/dL Calcium 10.0 (8.4-10.2) mg/dL Magnesium 2.5 H (1.6-2.3) mg/dL Total Bilirubin 0.5 (0.2-1.3) mg/dL AST 28 (14-36) IU/L ALT 22 (<35) IU/L Alkaline Phosphatase 75 (38-126) U/L Total Creatine Kinase 100 (30-135) U/L Troponin I < 0.012 (0.01-0.034) ng/mL NT-Pro-B Natriuret Pep 51 (<125) pg/mL Total Protein 9.1 H (6.3-8.2) g/dL Albumin 5.2 H (3.5-5.0) g/dL Globulin 3.9 (1.7-4.1) g/dL Albumin/Globulin Ratio 1.3 (1.0-2.8) Lipase 164 (23-300) U/L Imaging Data Chest x-ray: Radiologist's Impresson: [address] [address] XRay Report? Signed Patient: Dyana Pop MR#: [id number] : 1955 Acct:[id number] Age/Sex: 68 / F Date of Service: 10/01/23 Loc: ED Accession Number: [id number]? ? Procedure: XR chest 1V Ordering Provider: Nelly Rogers D.O. PROCEDURE:? XR CHEST 1V ? INDICATIONS:? chest pain ? TECHNIQUE:? One view of the chest was acquired.?? ? COMPARISON:? [facility], CR, XR CHEST 1V, 10/07/2021, 1:57. ? FINDINGS:?? ? Surgical changes and devices:? None.?? ? Lungs and pleura:? Lungs are clear.? No pleural effusions or pneumothorax.?? ? Mediastinum:? Mediastinal contours appear normal.? Heart size is normal.?? ? Bones and chest wall:? No suspicious bony lesions.? Overlying soft tissues appear? unremarkable.? IMPRESSION:?? ? No acute cardiopulmonary abnormality is seen.? Dictated by: Sharonda Wilburn MD, PhD on 10/01/2023 at 10:37? ? ? Approved by: Sharonda Wilburn MD, PhD on 10/01/2023 at 10:38? ? ECG Data Attestation: I personally reviewed and interpreted this ECG as follows: Prior ECG tracings: available for review Interpretation: AFib with rapid ventricular response rate of 139 QRS 82 QTC of 410, nonspecific change. Patient has prior from 04/29/2021 with nonspecific change. Repeat EKG shows sinus rhythm rate of 78 HI 190 QRS 86 QTC 433. No acute ST changes appreciated. MDM Narrative Medical decision making narrative: 60-year-old female history of atrial fibrillation anticoagulated in AFib RVR. Labs show CBC Rodriguez 6.3 hemoglobin of 13 platelets of 281. INR is 1.1 Chemistry shows potassium of 3.8 sodium 141 BUN is 18 creatinine 0.6 glucose is 103 Mag is 2.5 calcium of 10 otherwise normal LFTs, troponin is negative. BNP is 51. Chest x-ray shows no acute change Patient appeared to cardiovert prior to fluids and diltiazem. She appears to be in a sinus rhythm repeat EKG was performed. Patient had not had her morning metoprolol she takes 12.5 mg and was given a dose here in the department. Discharge Plan Departure Patient Disposition: Home Clinical Impression: Atrial fibrillation with rapid ventricular response Activity Restrictions/Additional Instructions: Follow-up with your physician for recheck. Continue your home medications as prescribed. You may take one additional dose of metoprolol if you know your heart rate is elevated, if this does not improve your symptoms you should go to the emergency department. Please return for recurrent symptoms, new chest pain or pressure, shortness of breath, lightheadedness or passing out, persistent vomiting, new swelling of your extremities or other new or concerning changes. Prescriptions: No Action loratadine [Allergy Relief (loratadine)] 10 mg tablet 10 mg PO DAILY Qty: 90 2RF apixaban 5 mg tablet 5 mg PO BID simvastatin 20 mg tablet 20 mg PO BEDTIME Qty: 90 3RF spironolactone [Aldactone] 25 mg tablet 12.5 mg PO DAILY metoprolol succinate 25 mg tablet extended release 24 hr 25 mg PO DAILY Qty: 90 1RF Rx Instructions: Take 1/2 tab daily clobetasol 0.05 % ointment 1 applic topical DAILY Qty: 30 0RF potassium chloride 10 mEq capsule, extended release See Rx Instructions .ROUTE .COMPLEX Qty: 90 3RF Dose Instruction: TAKE 1 CAPSULE DAILY Rx Instructions: TAKE 1 CAPSULE DAILY Referrals: Sandrita Alejandra MD [Primary Care Provider] - Stand Alone Forms: Patient Portal/API
[2023-10-01 10:48] LABS: PTT Partial Thromboplastin Tim 45 SECONDS (25.1-36.5)
--- NOTE | 2023-10-01 10:48 | PC.NURSE ---
[place] heart beat fast at 0945; checked [employer] watch and it showed afib. pt reports ablation in jan 13
[2023-10-01 10:49] LABS: Add Manual Diff / Slide Review NO; Basophils Absolute Auto 0 /uL (0-100); Basophils Percent Auto 0.6 % (0-2); Eosinophils Absolute Auto 100 /uL (0-450); Eosinophils Percent Auto 1.5 % (2-4); Hematocrit 40.9 % (36-46); Hemoglobin 13.8 g/dL (12.0-16.0); Lymphocytes Absolute Auto 2300 /uL (1100-4500); Lymphocytes Percent Auto 35.7 % (25-40); Mean Corpuscular HGB Conc 33.6 % (30-36); Mean Corpuscular Hemoglobin 30.8 PG (26-34); Mean Corpuscular Volume 91.7 fL (80-100); Monocytes Absolute Auto 400 /uL (0-900); Monocytes Percent Auto 6.2 % (3-14); Neutrophils Absolute Auto 3500 /uL (1500-7000); Platelet Count 281 X10^3/uL (150-400); Red Blood Cell Count 4.46 X10^6/uL (4.0-5.2); Red Cell Distribution Width 13.3 % (11.6-14.8); White Blood Cell Count 6.3 X10^3/uL (4.5-11.0)
[2023-10-01 10:51] LABS: Alanine Aminotransferase 22 IU/L (<35); Albumin 5.2 g/dL (3.5-5.0); Albumin Globulin Ratio 1.3 (1.0-2.8); Alkaline Phosphatase 75 U/L (38-126); Aspartate Aminotransferase 28 IU/L (14-36); Bilirubin Total 0.5 mg/dL (0.2-1.3); Blood Urea Nitrogen 18 mg/dL (7-17); Carbon Dioxide 27 mmol/L (22-32); Chloride 104 mmol/L (98-107); Creatine Kinase 100 U/L (30-135); Estimated Glomerular Filt Rate > 60 mL/min (>60); Globulin 3.9 g/dL (1.7-4.1); Glucose 103 mg/dL (80-110); HEMOLYSIS < 15 (0-50); Lipase 164 U/L (23-300); Magnesium 2.5 mg/dL (1.6-2.3); Potassium 3.8 mmol/L (3.4-5.1); Sodium 141 mmol/L (137-145); Total Protein 9.1 g/dL (6.3-8.2)
[2023-10-01 11:02] LABS: Troponin I < 0.012 ng/mL (0.01-0.034)
[2023-10-01] MEDS: SODIUM CHLORIDE 0.9% 1,000 ML 1000 ML IV (11:12)
[2023-10-01] MEDS: METOPROLOL ER 25 MG TABLET 12.5 MG PO (11:33)
[2023-10-01 11:38] LABS: NT-proBNP (BNP-Adult 18+) 51 pg/mL (<125)
== END 2023-10-01 12:05 | disposition home or self-care (01) ==
PROVIDERS: Emergency Provider Emergency Medicine; Family Provider Family Medicine; PCP Family Medicine
DX: I48.20 Chronic atrial fibrillation, unspecified (principal); R07.9 Chest pain, unspecified; Z79.01 Long term (current) use of anticoagulants
CPT/HCPCS: 36415; 71045; 80053; 82550; 83690; 83735; 83880; 84484; 85025; 85610; 85730; 93005; 93010; 96360; 99284

== ENCOUNTER → 2024-04-27 10:46 | Outpatient (CLI) | payer MEDICARE, OTHER, SELFPAY ==
--- NOTE | 2024-04-27 10:48 | DI.CT.S_ITS ---
PROCEDURE: CT CHEST WO CON INDICATIONS: MYCOBACTERIAL INFECTION TECHNIQUE: Noncontrast 5 mm thick sections acquired from the pulmonary apices to the posterior costophrenic angles. 1 mm lung window, 5 mm thick coronal and sagittal and 7 mm axial MIP reformats were then acquired. For radiation dose reduction, the following was used: automated exposure control, adjustment of mA and/or kV according to patient size. COMPARISON: [facility], CT, CT CHEST WO CON, 02/17/2023, 12:52. FINDINGS: Image quality: Diagnostic. Lower Neck: No enlarged lymph nodes. Thyroid: No thyroid nodules which require sonographic follow up, per consensus guidelines. Axillae: No enlarged lymph nodes. Chest Wall: Unremarkable. Bones: Mild multilevel degeneration in the thoracic spine. No suspicious lytic or blastic osseous lesions. No acute fractures. Lungs and Pleura: No pneumothorax or pleural effusions. Mild consolidations noted at the anterior right middle lobe, similar as seen in 02/17/2023 images. A cluster of 8 or 9 solid and sub solid pulmonary nodules are seen in the right upper lobe, the largest measuring 7 mm (series 3, images 132-137). A few calcified granulomas are noted in the right lung. Heart: Heart size is normal. No pericardial effusion. Mild calcification involving the left anterior descending coronary artery. Thoracic Vessels: The aorta and pulmonary arteries demonstrate normal size. Mediastinum and Kimberly: No enlarged lymph nodes. Esophagus: No wall thickening. No hiatal hernia. Upper Abdomen: Visualized upper abdomen solid organs and bowel loops appear normal. IMPRESSION: There is a cluster of solid and sub solid subcentimeter pulmonary nodules in the right upper lobe, the largest measuring 7 mm. The etiology is likely infectious, consistent with mycobacterial infection. However, per Fleischner guidelines consider repeat CT chest at 3-6 months and then at 18-24 months to assess for stability or resolution. Dictated by: Eliel Dumont M.D. on 04/27/2024 at 15:28 Approved by: Eliel Dumont M.D. on 04/27/2024 at 16:05
[2024-04-27 12:12] LABS: Cholesterol 144 mg/dL (140-199); HDL Cholesterol 61 mg/dL (40-60); LDL Cholesterol Calculated 59 mg/dL (<100); Triglycerides 119 mg/dL (35-150)
== END ==
PROVIDERS: Family Provider Family Medicine; PCP Family Medicine; Referring Provider Internal Medicine; Visit Provider Internal Medicine
DX: E78.5 Hyperlipidemia, unspecified (principal); R73.03 Prediabetes; A31.9 Mycobacterial infection, unspecified; M51.34 Other intervertebral disc degeneration, thoracic region; R91.8 Other nonspecific abnormal finding of lung field; I25.10 Atherosclerotic heart disease of native coronary artery without angina pectoris; R06.09 Other forms of dyspnea
CPT/HCPCS: 36415; 71250; 80061; 94060; 94729

== ENCOUNTER → 2024-04-27 10:49 | Outpatient (CLI) | payer MEDICARE, OTHER, SELFPAY | PROVIDERS: Family Provider Family Medicine; PCP Family Medicine; Referring Provider Internal Medicine; Visit Provider Internal Medicine | DX: R06.09 Other forms of dyspnea (principal); A31.9 Mycobacterial infection, unspecified | CPT/HCPCS: 94060; 94729 ==

== ENCOUNTER → 2024-05-06 12:40 | Outpatient (CLI) | payer MEDICARE, OTHER, SELFPAY ==
--- NOTE | 2024-05-06 12:41 | DI.MG.S_ITS ---
BILATERAL DIGITAL SCREENING MAMMOGRAM 3D/2D WITH CAD: 05/06/2024 CLINICAL: Routine screening. Family history of breast cancer. Comparison is made to exams dated: 04/25/2023 mammogram, 04/18/2022 mammogram, and 04/16/2021 mammogram - [facility]. There are scattered areas of fibroglandular density (category b / 25%-50% glandular tissue). Current study was also evaluated with a Computer Aided Detection (CAD) system. No significant masses, calcifications, or other findings are seen in either breast. There has been no significant interval change. IMPRESSION: NEGATIVE There is no mammographic evidence of malignancy. A 1 year screening mammogram is recommended. Based on the Tyrer Cuzick model (a risk assessment model) the patient's lifetime risk is 4.5% and her 10 year risk is 2.5%. According to the ACR, ACS, and NCCN guidelines, an annual breast MRI exam along with mammogram is recommended if the patient's lifetime risk is 20% or greater. This exam was interpreted at Station ID: [id number]. NOTE: For mammograms, a report in lay terms will be sent to the patient. Approximately 15% of breast malignancies will not be visualized mammographically. In the management of a palpable breast mass, a negative mammogram must not discourage biopsy of a clinically suspicious lesion. Electronically Signed By: Carmen reeves/fabio:05/06/2024 17:36:08 letter sent: Normal Exam ACR BI-RADS Category 1: Negative
== END ==
PROVIDERS: Family Provider Family Medicine; PCP Family Medicine; Referring Provider Family Medicine; Visit Provider Family Medicine
DX: Z12.31 Encounter for screening mammogram for malignant neoplasm of breast (principal); Z80.3 Family history of malignant neoplasm of breast
CPT/HCPCS: 77063; 77067

== ENCOUNTER → 2024-12-27 10:44 | Outpatient (CLI) | payer MEDICARE, OTHER, SELFPAY ==
--- NOTE | 2024-12-27 10:46 | DI.CT.S_ITS ---
PROCEDURE: CT CHEST WO CON INDICATIONS: MYOCOBATERIAL INFECTION TECHNIQUE: Noncontrast 5 mm thick sections acquired from the pulmonary apices to the posterior costophrenic angles. 1 mm lung window, 5 mm thick coronal and sagittal and 7 mm axial MIP reformats were then acquired. For radiation dose reduction, the following was used: automated exposure control, adjustment of mA and/or kV according to patient size. COMPARISON: [facility], CT, CT CHEST WO CON, 04/27/2024, 11:04. FINDINGS: Image quality: Diagnostic. Lower Neck: No enlarged lymph nodes. Thyroid: No thyroid nodules which require sonographic follow up, per consensus guidelines. Axillae: No enlarged lymph nodes. Chest Wall: Unremarkable. Bones: Unremarkable. Lungs and Pleura: No pneumothorax or pleural effusions. Stable appearance of small airway densities with centrilobular nodules in the right apical region as well as in the right middle lobe and lingula. Significant bronchiectasis with partial consolidation of the right middle lobe and lingula is also stable. There is a new 1.6 cm focus of ground-glass density with reticulation and small airway densities in the left lower lobe posteriorly, without solid nodule component. Heart: Heart size is normal. No pericardial effusion. Thoracic Vessels: The aorta and pulmonary arteries demonstrate normal size. Mediastinum and Kimberly: No enlarged lymph nodes. Esophagus: No wall thickening. No hiatal hernia. Upper Abdomen: Visualized upper abdomen solid organs and bowel loops appear normal. IMPRESSION: 1. Stable appearance of previously seen post inflammatory changes, including chronic right middle lobe syndrome as well as lingular scarring/atelectasis. 2. New focus of ground-glass density and reticulation in the left lower lobe, also likely inflammatory, can be reassessed with follow-up CT in 6 months if desired. Dictated by: Cooper Cooper M.D. on 12/27/2024 at 14:55 Approved by: Cooper Cooper M.D. on 12/27/2024 at 15:03
== END ==
PROVIDERS: Family Provider Family Medicine; PCP Family Medicine; Referring Provider Internal Medicine; Visit Provider Internal Medicine
DX: A31.0 Pulmonary mycobacterial infection (principal); J98.11 Atelectasis; R91.8 Other nonspecific abnormal finding of lung field
CPT/HCPCS: 71250